=== PATIENT | female | born 1940 | race Caucasian/White ===

== ENCOUNTER → 2016-07-05 | Outpatient (CLI) | payer MEDICARE, BC ==
--- NOTE | 2016-07-05 17:23 | XR ---
EXAMINATION TYPE: XR Hip Bilateral and AP pelvis DATE OF EXAM: 07/05/2016 5:18 PM COMPARISON: NONE HISTORY: Fell a week ago. Hip pain TECHNIQUE: 5 views 5 views of the pelvis and both hips including frog leg views show an intact pelvic ring. Proximal fem urs are intact. There is acetabular spurring on the right side more than the left. The sacroiliac jasbir nts are normal. There is atherosclerotic vascular calcification. There are spondylotic changes in the lumbar spine. CONCLUSION: No fracture seen. 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
== END | disposition home or self-care (01) ==
LOC: RADXRMAIN 16:51
PROVIDERS: ATTEND Internal Medicine Hematology & Oncology
DX: M16.11 Unilateral primary osteoarthritis, right hip (principal); C64.2 Malignant neoplasm of left kidney, except renal pelvis; D64.81 Anemia due to antineoplastic chemotherapy; E11.9 Type 2 diabetes mellitus without complications; I25.10 Atherosclerotic heart disease of native coronary artery without angina pectoris
CPT/HCPCS: 73521

== ENCOUNTER → 2016-08-03 | Outpatient (CLI) | payer MEDICARE, BC ==
--- NOTE | 2016-08-03 16:00 | XR ---
EXAMINATION TYPE: XR chest 2V DATE OF EXAM: 08/03/2016 3:56 PM COMPARISON: None HISTORY: 76-year-old female left renal cell carcinoma TECHNIQUE: Frontal and lateral views FINDINGS: Heart is normal size. Atherosclerotic arch calcifications. Mild interstitial prominence without conso lidation or pleural effusion. Suture anchor within the right humeral head with loss of the subacromial space suggestive of rotator cuff re-tear and rotator cuff arthropathy. IMPRESSION: Chronic changes without acute cardiopulmonary process.
== END | disposition home or self-care (01) ==
LOC: RADXRMAIN 15:29
PROVIDERS: ATTEND Internal Medicine Hematology & Oncology
DX: C64.2 Malignant neoplasm of left kidney, except renal pelvis (principal); D64.81 Anemia due to antineoplastic chemotherapy; E11.9 Type 2 diabetes mellitus without complications; I25.10 Atherosclerotic heart disease of native coronary artery without angina pectoris
CPT/HCPCS: 71020

== ENCOUNTER → 2016-08-09 | Outpatient (CLI) | payer MEDICARE, BC ==
[2016-08-09 13:39] LABS: Blood Urea Nitrogen 15 mg/dL (7-17); Non-African American GFR(MDRD) >60 (>60 ml/min/1.73 sqM)
--- NOTE | 2016-08-09 15:40 | CT ---
EXAMINATION TYPE: CT ChestAbdPelvis w con DATE OF EXAM: 08/09/2016 3:08 PM COMPARISON: CT CAP March 09, 2016 HISTORY: Patient has no complaints at time of service. Follow up study for known renal CA. CT DLP: 2020 mGycm. Automated Exposure Control for Dose Reduction was Utilized. CONTRAST: CT scan of the thorax, abdomen and pelvis is performed with oral and with IV Contrast, patient inject ed with 100 mL of Omnipaque 300. FINDINGS: LUNGS: Linear scarring in the right mid lung bases redemonstrated. A 1.2 x 0.8 cm pleural nodularity right posterior lung apex is unchanged on axial image 8. There is dependent atelectasis in both lower lobe seen. There is no suspicious new parenchymal nodule or mass identified bilaterally. There is n o pleural effusion or pneumothorax seen bilaterally. The tracheobronchial tree is patent. MEDIASTINUM: There is now enlarged paracarinal lymph node measuring 2.7 x 1.8 cm on axial image 21 wi th superior paratracheal extension. There is prominent coronary artery calcification and/or coronary stents. Heart size is upper limits of normal. There is moderate left atrial and left ventricular dil atation present. A 2.1 x 1.9 cm low dense nodule lower pole level right thyroid gland is redemonstrat ed felt stable on background of heterogeneous thyroid, unchanged from older studies. OTHER: No additional significant abnormality is seen. LIVER/GB: 1 cm simple appearing cyst right hepatic lobe axial image 57 is stable presumed benign. Gal lbladder is not visualized and presumed surgically absent. PANCREAS: No significant abnormality is seen. SPLEEN: No significant abnormality is seen. ADRENALS: No significant abnormality is seen. KIDNEYS: Heterogeneous ball-shaped left mid to lower pole renal mass or neoplasm continues to increas e in size measuring 6.8 x 6.4 x 5.9 cm in craniocaudal dimension on axial image 16 and coronal image 49. BOWEL: No significant abnormality is seen. GENITAL ORGANS: Uterus is surgically absent. Remnant ovaries are not enlarged. LYMPH NODES: There is new retroperitoneal/left paraaortic adenopathy just below level of left renal v essels measuring 2.4 x 2.2 cm on axial image 67. There is likely second smaller lymph node inferior a nd lateral to this somewhat indistinct from larger lymph node. OSSEOUS STRUCTURES: There is sclerosis with new mild to moderate height loss at L1 vertebral body lev el. Moderate multilevel spurring throughout the spine is present. Spurring at pubic symphysis is seen . Postsurgical changes in the lower lumbar spine are redemonstrated.. OTHER: There is moderate sized fat-containing umbilical hernia redemonstrated that is stable. There i s moderate to severe diffuse atherosclerotic change of aorta and pelvic branch vessels. IMPRESSION: 1. Continued enlargement in the left renal mass or neoplasm. New retroperitoneal adenopathy at level of kidneys is noted. New paracarinal adenopathy is now present. Overall findings consistent with neop lastic progression. 2. Suspect subacute mild to moderate compression type fracture at L1 level new from prior CT. No yuriy tional areas of sclerosis are identified to suggest pathologic fracture or metastatic disease to the bone but is not entirely excluded.
== END | disposition home or self-care (01) ==
LOC: RADCTMAIN 12:51
PROVIDERS: ATTEND Internal Medicine Hematology & Oncology
DX: C64.9 Malignant neoplasm of unspecified kidney, except renal pelvis (principal); N28.81 Hypertrophy of kidney; R59.0 Localized enlarged lymph nodes
CPT/HCPCS: 82565; 84520; 71260; 74177; 36415; Q9967

== ENCOUNTER 2016-08-15 12:33 | Inpatient (IN) | payer MEDICARE, BC ==
--- NOTE | 2016-08-15 13:06 | ED ---
General Adult HPI - General Chief complaint: Fall Stated complaint: Fall Time Seen by Provider: 08/15/16 12:40 Source: patient, EMS, RN notes reviewed Mode of arrival: EMS Limitations: no limitations - History of Present Illness Initial comments: This is a 76-year-old female who states she lost balance fell backwards and hit her head on the cement. Patient states she was bleeding from the back of head but she did not loose consciousness. Patient denies any neck pain. Patient denies numbness weakness. Patient denies disturbance. Patient denies any lightheadedness dizziness or syncopal episode. Patient denies any chest pain difficulty breathing shortness of breath per patient denies any palpitations. Patient denies abdominal pain. Patient denies any back pain. Patient states she does have some left hip pain however. Patient denies any other extremity pain at this time. - Related Data Home Medications Medication Instructions Recorded Confirmed Aspirin EC [Ecotrin Low Dose] 81 mg PO DAILY 08/15/16 08/15/16 Atenolol [Tenormin] 100 mg PO DAILY 08/15/16 08/15/16 Atorvastatin Calcium [Lipitor] 40 mg PO HS 08/15/16 08/15/16 Furosemide [Lasix] 40 mg PO DAILY 08/15/16 08/15/16 Isosorbide Mononitrate ER [Imdur] 30 mg PO DAILY 08/15/16 08/15/16 Loratadine [Claritin] 10 mg PO DAILY PRN 08/15/16 08/15/16 Meclizine [Antivert] 25 mg PO TID PRN 08/15/16 08/15/16 Mirabegron [Myrbetriq] 25 mg PO DAILY 08/15/16 08/15/16 Nitroglycerin Sl Tabs [Nitrostat] 0.4 mg SUBLINGUAL Q5M PRN 08/15/16 08/15/16 Potassium Chloride [Klor-Con 20] 20 meq PO DAILY 08/15/16 08/15/16 Ranitidine HCl [Zantac] 150 mg PO BID 08/15/16 08/15/16 Sertraline [Zoloft] 50 mg PO DAILY 08/15/16 08/15/16 metFORMIN HCL [Glucophage] 500 mg PO BID 08/15/16 08/15/16 Allergies Allergy/AdvReac Type Severity Reaction Status Date / Time ciprofloxacin [From Cipro] Allergy Unknown Verified 08/15/16 13:45 codeine Allergy Unknown Verified 08/15/16 13:45 enalapril Allergy Unknown Verified 08/15/16 13:45 Review of Systems ROS Statement: Those systems with pertinent positive or pertinent negative responses have been documented in the HPI. ROS Other: All systems not noted in ROS Statement are negative. Past Medical History Past Medical History: Atrial Fibrillation, Diabetes Mellitus, Hyperlipidemia, Hypertension, Renal Disease History of Any Multi-Drug Resistant Organisms: None Reported Past Surgical History: Heart Catheterization With Stent Additional Past Surgical History / Comment(s): stent x2 Past Psychological History: No Psychological Hx Reported Smoking Status: Never smoker Past Alcohol Use History: None Reported Past Drug Use History: None Reported General Exam - General Exam Comments Initial Comments: GENERAL: Patient is well-developed and well-nourished. Patient is nontoxic and well- hydrated and is in mild distress. ENT: Neck is soft and supple. No significant lymphadenopathy is noted. Oropharynx is clear. Moist mucous membranes. Neck has full range of motion without eliciting any pain. EYES: The sclera were anicteric and conjunctiva were pink and moist. Extraocular movements were intact and pupils were equal round and reactive to light. Eyelids were unremarkable. PULMONARY: Unlabored respirations. Good breath sounds bilaterally. No audible rales rhonchi or wheezing was noted. CARDIOVASCULAR: There is a regular rate and rhythm without any murmurs gallops or rubs. Femoral pulses are equal bilaterally ABDOMEN: Soft and nontender with normal bowel sounds. No palpable organomegaly was noted. There is no palpable pulsatile mass. SKIN: Skin is clear with no lesions or rashes and otherwise unremarkable. Patient has a laceration to the left temporal region of the scalp measuring about 3-1/2 cm NEUROLOGIC: Patient is alert and oriented x3. Cranial nerves II through XII are grossly intact. Motor and sensory are also intact. Normal speech, volume and content. Symmetrical smile. Musculoskeletal Patient has tenderness over the lateral aspect of the left hip and is difficult for her to lift her leg or externally rotated. LYMPHATICS: No significant lymphadenopathy is noted PSYCHIATRIC: Normal psychiatric evaluation. Limitations: no limitations Course Vital Signs 08/15/16 08/15/16 08/15/16 12:40 13:27 13:57 Temperature 96.9 F L Pulse Rate 16 L 60 57 L Respiratory 61 H 16 18 Rate Blood Pressure 114/68 130/60 132/62 O2 Sat by Pulse 94 L 99 99 Oximetry Procedures - Laceration Laceration #1 Consent Obtained: verbal consent Time Out Performed: Yes Indication: laceration Site: scalp Description: linear Depth: simple, single layer Pre-repair: wound explored Type of Sutures: other (4 brittni) Size of Sutures: other (Brittni) Complications: pain Patient Tolerated Procedure: well Medical Decision Making - Medical Decision Making EKG shows sinus bradycardia 59 bpm ND interval is on a 76 dresses 146 QT interval 506 QTC is 500. Patient's EKG shows left bundle branch block when compared to an old EKG she had a left bundle branch block previously. No other acute changes are noted Patient's CT of the brain and C-spine were negative. Patient's chest x-ray was negative. Patient has a femoral neck fracture on the left on the hip x-rays. I spoke with orthopedics except the patient admitted the patient. - Lab Data Result diagrams: 08/15/16 13:10 08/15/16 13:10 Lab Results 08/15/16 08/15/16 08/15/16 Range/Units 13:10 13:10 13:10 WBC 12.7 H (3.8-10.6) k/uL RBC 4.01 (3.80-5.40) m/uL Hgb 9.4 L (11.4-16.0) gm/dL Hct 31.6 L (34.0-46.0) % MCV 78.6 L (80.0-100.0) fL MCH 23.4 L (25.0-35.0) pg MCHC 29.8 L (31.0-37.0) g/dL RDW 16.9 H (11.5-15.5) % Plt Count 507 H (150-450) k/uL Neutrophils % 80 % Lymphocytes % 9 % Monocytes % 7 % Eosinophils % 2 % Basophils % 0 % Neutrophils # 10.3 H (1.3-7.7) k/uL Lymphocytes # 1.1 (1.0-4.8) k/uL Monocytes # 0.8 (0-1.0) k/uL Eosinophils # 0.2 (0-0.7) k/uL Basophils # 0.0 (0-0.2) k/uL Hypochromasia Marked Anisocytosis Slight Microcytosis Slight PT (9.0-12.0) sec INR (<1.1) APTT (22.0-30.0) sec Sodium 137 (137-145) mmol/L Potassium 4.4 (3.5-5.1) mmol/L Chloride 97 L (98-107) mmol/L Carbon Dioxide 23 (22-30) mmol/L Anion Gap 17 mmol/L BUN 13 (7-17) mg/dL Creatinine 0.58 (0.52-1.04) mg/dL Est GFR (MDRD) Af Amer >60 (>60 ml/min/1.73 sqM) Est GFR (MDRD) Non-Af >60 (>60 ml/min/1.73 sqM) Glucose 159 H (74-99) mg/dL Calcium 9.9 (8.4-10.2) mg/dL Magnesium 1.4 L (1.6-2.3) mg/dL Total Bilirubin 0.8 (0.2-1.3) mg/dL AST 41 H (14-36) U/L ALT 55 H (9-52) U/L Alkaline Phosphatase 145 H (38-126) U/L Total Creatine Kinase 28 L (30-135) U/L CK-MB (CK-2) <0.2 (0.0-2.4) ng/mL CK-MB (CK-2) Rel Index Troponin I <0.012 (0.000-0.034) ng/mL Total Protein 7.5 (6.3-8.2) g/dL Albumin 3.1 L (3.5-5.0) g/dL 08/15/16 Range/Units 13:10 WBC (3.8-10.6) k/uL RBC (3.80-5.40) m/uL Hgb (11.4-16.0) gm/dL Hct (34.0-46.0) % MCV (80.0-100.0) fL MCH (25.0-35.0) pg MCHC (31.0-37.0) g/dL RDW (11.5-15.5) % Plt Count (150-450) k/uL Neutrophils % % Lymphocytes % % Monocytes % % Eosinophils % % Basophils % % Neutrophils # (1.3-7.7) k/uL Lymphocytes # (1.0-4.8) k/uL Monocytes # (0-1.0) k/uL Eosinophils # (0-0.7) k/uL Basophils # (0-0.2) k/uL Hypochromasia Anisocytosis Microcytosis PT 13.5 H (9.0-12.0) sec INR 1.4 (<1.1) APTT 20.1 L (22.0-30.0) sec Sodium (137-145) mmol/L Potassium (3.5-5.1) mmol/L Chloride (98-107) mmol/L Carbon Dioxide (22-30) mmol/L Anion Gap mmol/L BUN (7-17) mg/dL Creatinine (0.52-1.04) mg/dL Est GFR (MDRD) Af Amer (>60 ml/min/1.73 sqM) Est GFR (MDRD) Non-Af (>60 ml/min/1.73 sqM) Glucose (74-99) mg/dL Calcium (8.4-10.2) mg/dL Magnesium (1.6-2.3) mg/dL Total Bilirubin (0.2-1.3) mg/dL AST (14-36) U/L ALT (9-52) U/L Alkaline Phosphatase (38-126) U/L Total Creatine Kinase (30-135) U/L CK-MB (CK-2) (0.0-2.4) ng/mL CK-MB (CK-2) Rel Index Troponin I (0.000-0.034) ng/mL Total Protein (6.3-8.2) g/dL Albumin (3.5-5.0) g/dL Disposition Clinical Impression: Femoral neck fracture, Fall, Scalp laceration Disposition: ADMITTED IP TO THIS HOSP Referrals: Iggy Caraballo MD [Primary Care Provider] - 1-2 days Time of Disposition: 15:05
[2016-08-15 13:20] LABS: Anisocytosis Slight; Basophils % (A) 0 %; CH 23.2; CHCM 29.6; Eosinophils # (A) 0.2 k/uL (0-0.7); Eosinophils % (A) 2 %; HCT 31.6 % (34.0-46.0); HDW 3.33; HGB 9.4 gm/dL (11.4-16.0); Hypochromasia Marked; Luc # (Auto) 0.27; Luc % (Auto) 2; Lymphocytes # (A) 1.1 k/uL (1.0-4.8); Lymphocytes % (A) 9 %; MCH 23.4 pg (25.0-35.0); MCHC 29.8 g/dL (31.0-37.0); MCV 78.6 fL (80.0-100.0); Mean Platelet Volume 6.4; Microcytosis Slight; Monocytes # (A) 0.8 k/uL (0-1.0); Monocytes % (A) 7 %; Neutrophils # (A) 10.3 k/uL (1.3-7.7); Neutrophils % (A) 80 %; RBC 4.01 m/uL (3.80-5.40); RDW 16.9 % (11.5-15.5); WBC 12.7 k/uL (3.8-10.6); WBC (Perox) 12.72
--- NOTE | 2016-08-15 13:40 | CT ---
EXAMINATION TYPE: CT brain cspine wo con DATE OF EXAM: 08/15/2016 1:32 PM COMPARISON: 08/09/2016 HISTORY: Pain post fall CT DLP: 410.90 mGycm Automated exposure control for dose reduction was used. TECHNIQUE: CT scan of the head and cervical spine are performed without contrast. FINDINGS: Vascular calcifications. Calvarium intact. Mild generalized degenerative change. Perivent ricular low attenuation compatible with remote microvascular ischemia. Small amount of soft tissue ed tacho subcutaneously adjacent to the left parietal calvarium. Cervical spine is visualized in its entirety from C1 through upper thoracic levels and demonstrates s atisfactory alignment without evidence of acute fracture or dislocation. Prevertebral soft tissue ap pears within normal limits. There is multilevel degenerative disc disease and large anterior osteophy te formation. Facet arthropathy at all levels. Most marked changes at C5-6 and C6-C7 with suspected f oraminal encroachment and possible canal stenosis which could be correlated with MRI. IMPRESSION: 1. There is no acute fracture or dislocation evident in the cervical spine. 2. No acute intracranial hemorrhage, mass effect, or midline shift is seen. 3. Along the medial margin of the right upper lobe there is apical pleural thickening. Apical lung ma ss not excluded. This is reported and stable compared to recent CT 08/09/2016 4. Marked enlargement of the right lobe of thyroid with nodularity measuring greater than a centimete r.
[2016-08-15 13:42] LABS: Anion Gap 17 mmol/L; Calcium 9.9 mg/dL (8.4-10.2); Carbon Dioxide 23 mmol/L (22-30); Chloride 97 mmol/L (98-107); Glucose 159 mg/dL (74-99); Non-African American GFR(MDRD) >60 (>60 ml/min/1.73 sqM); Sodium 137 mmol/L (137-145); Total Bilirubin 0.8 mg/dL (0.2-1.3); Total Protein 7.5 g/dL (6.3-8.2)
[2016-08-15 13:46] LABS: INR 1.4 (<1.1); Partial Thromboplastin Time 20.1 sec (22.0-30.0); Prothrombin Time 13.5 sec (9.0-12.0)
[2016-08-15 13:56] LABS: Potassium 4.4 mmol/L (3.5-5.1)
[2016-08-15 13:57] LABS: ALT 55 U/L (9-52); AST 41 U/L (14-36); Alkaline Phosphatase 145 U/L (38-126); Blood Urea Nitrogen 13 mg/dL (7-17); Magnesium 1.4 mg/dL (1.6-2.3)
[2016-08-15 14:03] LABS: Creatine Kinase 28 U/L (30-135)
[2016-08-15 14:16] LABS: Creatine Kinase MB <0.2 ng/mL (0.0-2.4); Troponin I <0.012 ng/mL (0.000-0.034)
[2016-08-15] MEDS ORDERED: DIPH,PERTUS(ACELL)TETVAC-LF 0.5 ML VIAL IM ONE (14:32)
--- NOTE | 2016-08-15 14:50 | XR ---
EXAMINATION TYPE: XR chest 1V DATE OF EXAM: 08/15/2016 2:44 PM COMPARISON: Chest x-ray August 03, 2016. HISTORY: Chest pain after fall injury. TECHNIQUE: Single frontal supine view of the chest is obtained. FINDINGS: Poor inspiration is seen on current study. Elevated right hemidiaphragm is now present. Th ere is chronic parenchymal change without suspicious new focal air space opacity, pleural effusion, o r pneumothorax seen. The cardiac silhouette size is upper limits of normal on current study with ath erosclerotic thoracic aorta. The osseous structures are demineralized. Multilevel spurring and spin e is seen. Surgical changes right humeral head level is redemonstrated with metallic anchor. Degenera tive change of both shoulders is redemonstrated. IMPRESSION: Poor inspiration with elevated right hemidiaphragm but no suspicious focal infiltrate.
[2016-08-15] MEDS ORDERED: MAGNESIUM SULFATE-D5W PMX 1 GM in DEXTROSE/WATER 1 100ML.BAG IVPB ONE (15:00)
--- NOTE | 2016-08-15 15:00 | XR ---
EXAMINATION TYPE: XR Hip LT and AP Pelvis DATE OF EXAM: 08/15/2016 2:44 PM COMPARISON: NONE HISTORY: Pelvic and left hip pain after fall injury TECHNIQUE: A single AP view of the pelvis is obtained. Two views of the left hip are obtained. FINDINGS: Osseous structures are demineralized which is noted to lower radiographic sensitivity. Ther e is acute impacted transcervical fracture of left proximal femur at the femoral neck level. No hip j oint dislocation is seen. Vascular calcification left groin region is noted. Imaging of pelvis shows no additional acute fracture or dislocation. There is mild to moderate joint space loss and spurring and opposite right hip joint. Sacroiliac joints are maintained. Some scattere d vascular calcification is present in the central pelvis. IMPRESSION: There is acute comminuted transcervical impacted fracture of midportion of left femoral neck. (Initial encounter closed type post traumatic fracture)
[2016-08-15] MEDS ORDERED: SODIUM CHLORIDE 0.9% 1,000 ML IV ONE (15:05)
[2016-08-15] MEDS ORDERED: ONDANSETRON 4 MG/2 ML VIAL IVP STA (15:07)
[2016-08-15] MEDS ORDERED: ONDANSETRON 4 MG/2 ML VIAL IVP PRN (15:07)
[2016-08-15] MEDS ORDERED: HYDROmorphone 1 MG/ML 1 ML SYRINGE IVP STA (15:07)
[2016-08-15] MEDS: HYDROmorphone 1 MG/ML 1 ML SYRINGE IVP PRN ×2 (19:10→22:56)
[2016-08-15] MEDS ORDERED: LORATADINE 10 MG TAB PO PRN (20:55)
[2016-08-15] MEDS ORDERED: NITROGLYCERIN SL TABS 0.4 MG TAB SUBLINGUAL PRN (20:55)
[2016-08-15] MEDS ORDERED: MECLIZINE 25 MG TAB PO PRN (20:55)
[2016-08-15 21:58] LABS: Glucose,Whole Blood 173 mg/dL (75-99)
[2016-08-15 22:15] LABS: Hemoglobin A1C 6.8 % (4.2-6.1)
[2016-08-15] MEDS: ATORVASTATIN 40 MG TAB PO SCH (22:48)
[2016-08-15] MEDS: metFORMIN 500 MG TAB PO SCH (22:49)
[2016-08-15] MEDS: FAMOTIDINE 20 MG TAB PO SCH (22:49)
[2016-08-15] MEDS: INSULIN LISPRO (humaLOG) 300 UNIT/3 ML VIAL SQ SCH (22:51)
--- NOTE | 2016-08-15 22:53 | P.CONS ---
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 Iggy Caraballo's patient with past medical history of CAD, A. 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 Quick for the last few weeks. Patient recently had CAT scan and other testing to determine the need for more chemotherapy. Patient was in the [employer] when she went out in the parking lot she felt quite bed lightheaded and her left leg gave out ended up falling in the parking lot slammer had the Increased floor developed to have laceration on the left side and bled quite bed. 911 was called patient brought to the emergency department at [facility] suture of the scalp area was done patient had severe pain in the left hip area x-ray revealed hip fracture in the left side. Patient was admitted to Dr. Elizabeth of service asking for medical clearance for possible surgery tomorrow. I had quite but discussion with the daughter today and more information patient apparently had stage IV renal cell CVA not clear how much metastasis she had this point. Also patient has not seen her seo coordinator and has not had any workup in the lost few years. Her surgery cannot be done tomorrow she need to be seen by cardiology and oncology for the insert and finding of her metastasis take cancer and the possibly of involving the bone. Also patient will have an echocardiogram and seeing cardiology for clearance before deciding to go for surgery. Review of Systems Constitutional: Reports anorexia, Reports fatigue, Reports lethargy, Reports weakness, Denies as per HPI, Denies chills, Denies chronic headaches, Denies chronic pain, Denies daytime sleepiness, Denies fever, Denies malaise, Denies night sweats, Denies poor appetite, Denies sweats, Denies weight gain, Denies weight loss Eyes: bilateral as per HPI Ears: bilateral: decreased hearing Ears, nose, mouth and throat: Reports ant. neck pain, Reports nasal congestion, Reports nose pain, Reports sinus pain, Reports sinus pressure, Denies as per HPI , Denies bleeding gums, Denies dental pain, Denies dysphagia, Denies epistaxis, Denies headache, Denies hoarseness, Denies mouth pain, Denies nasal discharge, Denies neck fullness/pressure, Denies neck lump, Denies odynophagia, Denies post -nasal drip, Denies swelling in mouth, Denies swelling in throat, Denies sore throat, Denies vertigo, Denies voice changes Cardiovascular: Reports claudication, Reports dyspnea on exertion, Reports edema , Reports orthopnea, Reports palpitations, Denies as per HPI, Denies chest pain , Denies decreased exercise tolerance, Denies high blood pressure, Denies irregular heart beat, Denies leg edema, Denies lightheadedness, Denies paroxysmal nocturnal dyspnea, Denies phlebitis, Denies rapid heart beat, Denies shortness of breath, Denies syncope Respiratory: Reports congestion, Reports cough, Reports dyspnea, Denies as per HPI, Denies cough with sputum, Denies excessive sputum, Denies hemoptysis, Denies home oxygen, Denies pain, Denies pain on inspiration, Denies pleurisy, Denies respiratory infections, Denies sleep apnea, Denies snoring, Denies wheezing Gastrointestinal: Reports abdominal pain, Reports dyspepsia, Reports indigestion , Reports nausea, Denies as per HPI, Denies belching, Denies bloating, Denies BRBPR, Denies change in bowel habits, Denies coffee ground emesis, Denies constipation, Denies diarrhea, Denies early satiety, Denies excessive gas, Denies heartburn, Denies hematemesis, Denies hematochezia, Denies jaundice, Denies lactose intolerance, Denies loss of appetite, Denies melena, Denies vomiting Genitourinary: Reports urge incontinence, Reports urgency, Reports urinary frequency, Denies as per HPI, Denies abnormal vaginal bleeding, Denies decreased libido, Denies difficulty conceiving, Denies difficulty voiding, Denies dysmenorrhea, Denies dyspareunia, Denies dysuria, Denies flank pain, Denies genital sores, Denies hematuria, Denies hot flashes, Denies incomplete emptying, Denies kidney stones, Denies menorrhagia, Denies mixed incontinence, Denies nocturia, Denies pelvic pain, Denies post void dribbling, Denies , Denies prolapse symptoms, Denies stress incontinence, Denies vaginal discharge , Denies vaginal dryness, Denies vaginal itching, Denies vaginal odor Musculoskeletal: Reports low back pain, Reports myalgias, Reports neck pain, Reports neck stiffness, Reports prior amputations, Denies as per HPI, Denies arm numbness/tingling, Denies atrophy, Denies fractures, Denies frequent falls, Denies gait dysfunction, Denies hot joints, Denies leg numbness/tingling, Denies limitation of motion, Denies loss of height, Denies morning stiffness, Denies muscle cramps, Denies muscle weakness, Denies redness of joints, Denies shooting arm pain, Denies shooting leg pain Integumentary: Reports pruritus, Reports rash, Denies as per HPI, Denies acne, Denies boils, Denies brittle nails, Denies change in hair/nails, Denies color changes, Denies darkening of skin, Denies depigmentation, Denies dryness, Denies foot/leg ulcers, Denies growths, Denies hirsutism, Denies lesions, Denies onychomycosis, Denies sores, Denies striae, Denies unusual bruising, Denies wounds Neurological: Reports gait dysfunction, Reports paresthesias, Reports weakness, Denies as per HPI, Denies aphasia, Denies ataxia, Denies balance difficulties, Denies burning pain, Denies change in mentation, Denies change in smell/taste, Denies change in speech, Denies confusion, Denies convulsions, Denies double vision, Denies head injury, Denies headaches, Denies hearing difficulties, Denies lack of coordination, Denies loss of vision, Denies memory loss, Denies migraines, Denies motor disturbance, Denies numbness, Denies paralysis, Denies seizures, Denies sensory deficit, Denies spasticity, Denies syncope, Denies tic , Denies tingling, Denies transient paralysis, Denies tremors, Denies vertigo, Denies visual changes Psychiatric: Reports anhedonia, Reports depression, Denies as per HPI, Denies anxiety, Denies anxiety attacks, Denies change in appetite, Denies change in libido, Denies change in sleep habits, Denies confusion, Denies difficulty concentrating, Denies disorientation, Denies hallucinations, Denies hopelessness , Denies hypersomnia, Denies insomnia, Denies irritability, Denies memory loss, Denies mood swings, Denies paranoia, Denies sadness/tearfulness, Denies sleep disturbances, Denies suicidal ideation Endocrine: Reports polyuria, Denies as per HPI, Denies cold intolerance, Denies deepening of the voice, Denies excessive sweating, Denies excessive thirst, Denies fatigue, Denies flushing, Denies heat intolerance, Denies high blood sugars, Denies increase in ring/shoe/hat size, Denies low blood sugars, Denies nocturia, Denies palpitations, Denies polydipsia, Denies polyphagia, Denies proptosis, Denies recent glucocorticoid use, Denies thyroid mass, Denies weight change Hematologic/Lymphatic: Denies as per HPI, Denies easy bleeding, Denies easy bruising, Denies lymphadenopathy, Denies lymphedema, Denies thrombophilia Allergic/Immunologic: Denies as per HPI, Denies allergic rhinitis, Denies anaphylaxis, Denies angioedema, Denies gluten intolerance, Denies persistent infections, Denies seasonal allergies, Denies urticaria, Denies wheezing Past Medical History Past Medical History: Atrial Fibrillation, Cancer, Chest Pain / Angina, Diabetes Mellitus, GERD/Reflux, Hyperlipidemia, Hypertension, Osteoarthritis (OA ), Renal Disease, Thyroid Disorder Additional Past Medical History / Comment(s): 08/15/16 fall/fx lt hip/scalp laceration .past med hx: sinus problems, petptic ulcer, chronic back pain, constipation -last bm sat 08-12-16, stated has" kidney cancer(lt) stage 4 and cancer found in thyroid and lungs take opdivo cassy other week was due to take it next on 08-16-16", decrease appetite,"40# wt loss over past year" History of Any Multi-Drug Resistant Organisms: None Reported Past Surgical History: Appendectomy, Back Surgery, Bladder Surgery, Cholecystectomy, Heart Catheterization With Stent, Hysterectomy Additional Past Surgical History / Comment(s): stent x2 , rt rotator cuff, egd/ colonoscopy, rt breast bx-neg, lt kidney bx positive for cancer,had 2 heart caths([id number]), x3 back sx, obdulia carpal tuneel release, obdulia cataracts. Past Anesthesia/Blood Transfusion Reactions: Previous Problems w/ Anesthesia, Postoperative Nausea & Vomiting (PONV) Additional Past Anesthesia/Blood Transfusion Reaction / Comm: hard to wake up Date of Last Stent Placement:: 2004 Past Psychological History: No Psychological Hx Reported Additional Psychological History / Comment(s): takes zoloft. at time of this admit pt raffi any depression or thoughts of harming self. Smoking Status: Never smoker Past Alcohol Use History: None Reported Past Drug Use History: None Reported - Past Family History Father Family Medical History: Coronary Artery Disease (CAD), Myocardial Infarction ([place] ) Mother Family Medical History: CVA/TIA Additional Family Medical History / Comment(s): "heart problems" Medications and Allergies Home Medications Medication Instructions Recorded Confirmed Type Aspirin EC [Ecotrin Low Dose] 81 mg PO DAILY 08/15/16 08/15/16 History Atenolol [Tenormin] 100 mg PO DAILY 08/15/16 08/15/16 History Atorvastatin Calcium [Lipitor] 40 mg PO HS 08/15/16 08/15/16 History Furosemide [Lasix] 40 mg PO DAILY 08/15/16 08/15/16 History Isosorbide Mononitrate ER [Imdur] 30 mg PO DAILY 08/15/16 08/15/16 History Loratadine [Claritin] 10 mg PO DAILY PRN 08/15/16 08/15/16 History Meclizine [Antivert] 25 mg PO TID PRN 08/15/16 08/15/16 History Mirabegron [Myrbetriq] 25 mg PO DAILY 08/15/16 08/15/16 History Nitroglycerin Sl Tabs [Nitrostat] 0.4 mg SUBLINGUAL Q5M PRN 08/15/16 08/15/16 History Potassium Chloride [Klor-Con 20] 20 meq PO DAILY 08/15/16 08/15/16 History Ranitidine HCl [Zantac] 150 mg PO BID 08/15/16 08/15/16 History Sertraline [Zoloft] 50 mg PO DAILY 08/15/16 08/15/16 History metFORMIN HCL [Glucophage] 500 mg PO BID 08/15/16 08/15/16 History Allergies Allergy/AdvReac Type Severity Reaction Status Date / Time ciprofloxacin [From Cipro] Allergy Unknown Verified 08/15/16 13:45 codeine Allergy Unknown Verified 08/15/16 13:45 enalapril Allergy Unknown Verified 08/15/16 13:45 Physical Exam Vitals: Vital Signs Temp Pulse Resp BP Pulse Ox 08/15/16 19:10 97.6 F 63 16 149/68 96 08/15/16 15:22 97.0 F L 56 L 18 138/63 98 - Constitutional General appearance: no average body habitus, cooperative, no disheveled, no mild distress, no morbidly obese, no acute distress, no obese, no severe distress, no thin - EENT Laceration on the scalp on the left side with suture the area looked clean with no hematoma with mild bruise on the. Eyes: no abnormal pupil, no anicteric sclerae, no disc margins sharp, no edentulous, no EOMI, no PERRLA, no fundus normal, no photophobia, no dentition normal, no poor dentition, no ptosis, no scleral icterus, normal appearance ENT: hard of hearing, no hearing grossly normal, no NA/AT, normal oropharynx, no other, no pharyngeal erythema, no thrush, no tonsillar exudates, no tonsillar swelling Ears: bilateral: normal - Neck Neck: no lymphadenopathy, normal ROM, no other, no rigidity, no stridor, no thyromegaly Thyroid: bilateral: normal size - Respiratory Respiratory: bilateral: CTA, diminished - Cardiovascular Rhythm: regular Heart sounds: normal: S1, S2 Abnormal Heart Sounds: systolic murmur, S3 Gallop - Gastrointestinal General gastrointestinal: no absent bowel sounds, no decreased bowel sounds, distended, no hepatomegaly, no hyperactive bowel sounds, no normal bowel sounds , no organomegaly, no rigid, no scaphoid, soft, no splenomegaly, no tenderness, no umbilical hernia, no ventral hernia - Integumentary Left hip and pelvic pain with slight rotation of the left leg laterally. Integumentary: jaundiced, normal, pale, rash - Neurologic Neurologic: CNII-XII intact - Musculoskeletal Musculoskeletal: gait normal, generalized weakness, strength equal bilaterally - Psychiatric Psychiatric: A&O x's 3, appropriate affect Results CBC & Chem 7: 08/15/16 13:10 08/15/16 13:10 Labs: Abnormal Lab Results - Last 24 Hours (Table) 08/15/16 08/15/16 Range/Units 19:51 21:55 POC Glucose (mg/dL) 173 H (75-99) mg/dL Hemoglobin A1c 6.8 H (4.2-6.1) % Assessment and Plan Plan: 1 left hip fracture: Patient eventually will need to go for surgery either for ORIF or hemiarthroplasty. Patient had significant increased risk factor for complications during after surgery with the and certain degree of her metastasis which can be involving the bone might need to have further testing including bone scan if needed because if the hip bone is involved with further metastasis that might change the whole philosophy of fixing this hip at this point. Her oncologist will be involved and review her testing and further recommendation to follow. 2 close head trauma: Patient did not lose any consciousness according to her CAT scan of the brain did not show any bleeding continue to monitor patient neurologically closely. 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 Quick regularly CT and other testing were done patient was post to discuss results with her oncologist this week. 4 CAD post PCI with 2 stent placement: Patient has not seen Dr. Mark on her seo coordinator and over a year will order an echocardiogram and cardiology consultation. 5 A. fib: Pulse rates under control patient is in sinus rhythm currently not on any anticoagulation. 6 hypertension: Patient is doing well on atenolol. 7 chronic edema: Has been on furosemide 40 mg daily. 8 severe GERD: Patient is on Zantac 150 milligrams twice a day. 9 chronic depression: Has been on Zoloft 50 mg daily. 10 diabetes type 2: Patient is on metformin 500 mg twice a day continue patient on Accu-Chek with sliding scales coverage. 11 hyperlipidemia: Has been on Lipitor 40 mg daily. 12 chronic incontinence: Has been in Myrbetriq 25 mg daily. GI prophylaxis: Remain on Zantac. DVT prophylaxis: Patient will be on heparin subcutaneous. CODE STATUS: Full code. Dr. Elizabeth thank you very much for the consult surgery cannot be done on 08/16 , She will be seen cardiology and oncology based on the final decision with testing surgery might be scheduled for this week.
[2016-08-16] MEDS: HYDROmorphone 1 MG/ML 1 ML SYRINGE IVP PRN ×5 (04:26→22:37)
[2016-08-16 06:59] LABS: Glucose,Whole Blood 131 mg/dL (75-99)
[2016-08-16] MEDS: ISOSORBIDE MONONITRATE ER 30 MG TAB.ER.24H PO SCH (08:20)
[2016-08-16] MEDS: POTASSIUM CHLORIDE ER 20 MEQ TAB.ER PO SCH (08:20)
[2016-08-16] MEDS: FAMOTIDINE 20 MG TAB PO SCH ×2 (08:20→20:40)
[2016-08-16] MEDS: SERTRALINE 50 MG TAB PO SCH (08:20)
[2016-08-16] MEDS: OXYBUTYNIN XL 5 MG TAB.ER.24 PO SCH (08:20)
[2016-08-16] MEDS: FUROSEMIDE 40 MG TAB PO SCH (08:20)
[2016-08-16] MEDS: ATENOLOL 50 MG TAB PO SCH (08:20)
[2016-08-16] MEDS: metFORMIN 500 MG TAB PO SCH ×2 (08:20→20:40)
[2016-08-16] MEDS: INSULIN LISPRO (humaLOG) 300 UNIT/3 ML VIAL SQ SCH ×4 (08:20→20:40)
--- NOTE | 2016-08-16 08:36 | P.HPOR ---
History of Present Illness H&P Date: 08/16/16 Chief Complaint: Left hip fracture This is a 76-year-old female with history of stage IV renal cell cancer. Patient sustained a fall onto her left hip yesterday and had immediate pain. She is brought to the emergency department [facility] where x-rays revealed a left hip fracture. Patient was admitted to our service for surgical intervention. Patient was seen and evaluated at bedside. She complains of pain in her left hip. She denies any additional areas of musculoskeletal pain at this time. The patient did hit her head and computed tomography scan was obtained of the patient's head and neck. She currently denies fevers, chills, nausea, vomiting, chest pain or abdominal pain. Review of Systems See HPI Past Medical History Past Medical History: Atrial Fibrillation, Cancer, Chest Pain / Angina, Diabetes Mellitus, GERD/Reflux, Hyperlipidemia, Hypertension, Osteoarthritis (OA ), Renal Disease, Thyroid Disorder Additional Past Medical History / Comment(s): 08/15/16 fall/fx lt hip/scalp laceration .past med hx: sinus problems, petptic ulcer, chronic back pain, constipation -last bm sat 08-12-16, stated has" kidney cancer(lt) stage 4 and cancer found in thyroid and lungs take opdivo cassy other week was due to take it next on 08-16-16", decrease appetite,"40# wt loss over past year" History of Any Multi-Drug Resistant Organisms: None Reported Past Surgical History: Appendectomy, Back Surgery, Bladder Surgery, Cholecystectomy, Heart Catheterization With Stent, Hysterectomy Additional Past Surgical History / Comment(s): stent x2 , rt rotator cuff, egd/ colonoscopy, rt breast bx-neg, lt kidney bx positive for cancer,had 2 heart caths([id number]), x3 back sx, obdulia carpal tuneel release, obdulia cataracts. Past Anesthesia/Blood Transfusion Reactions: Previous Problems w/ Anesthesia, Postoperative Nausea & Vomiting (PONV) Additional Past Anesthesia/Blood Transfusion Reaction / Comment(s): hard to wake up Date of Last Stent Placement:: 2004 Past Psychological History: No Psychological Hx Reported Additional Psychological History / Comment(s): takes zoloft. at time of this admit pt raffi any depression or thoughts of harming self. Smoking Status: Never smoker Past Alcohol Use History: None Reported Past Drug Use History: None Reported - Past Family History Father Family Medical History: Coronary Artery Disease (CAD), Myocardial Infarction ([place] ) Mother Family Medical History: CVA/TIA Additional Family Medical History / Comment(s): "heart problems" Medications and Allergies Home Medications Medication Instructions Recorded Confirmed Type Aspirin EC [Ecotrin Low Dose] 81 mg PO DAILY 08/15/16 08/15/16 History Atenolol [Tenormin] 100 mg PO DAILY 08/15/16 08/15/16 History Atorvastatin Calcium [Lipitor] 40 mg PO HS 08/15/16 08/15/16 History Furosemide [Lasix] 40 mg PO DAILY 08/15/16 08/15/16 History Isosorbide Mononitrate ER [Imdur] 30 mg PO DAILY 08/15/16 08/15/16 History Loratadine [Claritin] 10 mg PO DAILY PRN 08/15/16 08/15/16 History Meclizine [Antivert] 25 mg PO TID PRN 08/15/16 08/15/16 History Mirabegron [Myrbetriq] 25 mg PO DAILY 08/15/16 08/15/16 History Nitroglycerin Sl Tabs [Nitrostat] 0.4 mg SUBLINGUAL Q5M PRN 08/15/16 08/15/16 History Potassium Chloride [Klor-Con 20] 20 meq PO DAILY 08/15/16 08/15/16 History Ranitidine HCl [Zantac] 150 mg PO BID 08/15/16 08/15/16 History Sertraline [Zoloft] 50 mg PO DAILY 08/15/16 08/15/16 History metFORMIN HCL [Glucophage] 500 mg PO BID 08/15/16 08/15/16 History Allergies Allergy/AdvReac Type Severity Reaction Status Date / Time ciprofloxacin [From Cipro] Allergy Unknown Verified 08/15/16 13:45 codeine Allergy Unknown Verified 08/15/16 13:45 enalapril Allergy Unknown Verified 08/15/16 13:45 Physical Examination The patient does not appear in acute distress. She is alert and orientated 3. She is pleasant and answers questions appropriately. Head normocephalic. She does have laceration on the left side of her scalp which was repaired with brittni in the emergency department by the ER physician. Neck is supple. She moves her upper extremities freely without difficulty or pain. Breathing appears nonlabored. Upon evaluation of her lower extremities, left lower extremity is shortened and externally rotated. She has pain about the left hip and worsening pain with any motion of the left lower extremity. She otherwise denies any pain of her long bones and joints of her lower extremity today. Calves are soft and nontender. She does have superficial abrasion of the anterior aspect of the left knee with no erythema or drainage. She is able to perform dorsiflexion plantar flexion at her ankles. Dorsalis pedis pulse 1+. Sensation is intact. Results X-rays the patient's left hip and pelvis shows femoral neck fracture of the left femur. No additional fractures were noted. - Labs Labs: Abnormal Lab Results - Last 24 Hours (Table) 08/15/16 08/15/16 08/16/16 Range/Units 19:51 21:55 06:57 POC Glucose (mg/dL) 173 H 131 H (75-99) mg/dL Hemoglobin A1c 6.8 H (4.2-6.1) % Result Diagrams: 08/15/16 13:10 08/15/16 13:10 Assessment and Plan (1) Fall Status: Acute (2) Femoral neck fracture Status: Acute (3) Scalp laceration Status: Acute Plan: The patient was seen and evaluated at bedside with Dr. Kodi Elizabeth. The clinical and x-ray findings were discussed with the patient. Discussed nonoperative versus operative treatment. Orthopedics recommends surgical intervention with hemiarthroplasty of the left hip. Possible risks and complications including but not limited to risk of bleeding, infection, dislocation, DVT, stroke, heart attack and were discussed. The patient has been seen by Dr. Reed in consultation and his input is appreciated. We will await consultation with oncology as she does have history of renal cell carcinoma. Definitive treatment will be determined after these consultations. Possible surgery tomorrow depending upon her course. Continue with pain control.
[2016-08-16] MEDS: SENNOSIDES-DOCUSATE SODIUM 1 EACH TAB PO SCH (09:10)
[2016-08-16 10:05] VITALS: BMI 29.2
[2016-08-16 11:58] LABS: Glucose,Whole Blood 160 mg/dL (75-99)
--- NOTE | 2016-08-16 12:04 | P.PN ---
Progress Note - Text Full consult to follow D/W ortho No contraindication to surgery from Onc standpoint
--- NOTE | 2016-08-16 12:13 | P.CRDCN ---
History of Present Illness Consult date: 08/16/16 History of present illness: This is a pleasant 76-year-old female patient who sees Dr. 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 The patient fell in the parking lot and fractured her left hip. She was seen by the orthopedic surgery service and the plan is to proceed with surgery tomorrow if she is medically stable. From the cardiovascular standpoint overview, she denies having any chest pain or discomfort, she has chronic dyspnea which seems to be unchanged compared to before. Hemodynamically, she continues to be stable with a normal blood pressure and she continues to be in normal sinus mechanism. From the cardiac standpoint, the patient can proceed with the surgery. I would recommend continue the beta candace with metoprolol and continue the statin as well. We'll continue following up with the patient. I am going to obtain an echocardiogram to assess the LV function in view of the patient was receiving chemotherapy for renal cell carcinoma. Past Medical History Past Medical History: Atrial Fibrillation, Cancer, Chest Pain / Angina, Diabetes Mellitus, GERD/Reflux, Hyperlipidemia, Hypertension, Osteoarthritis (OA ), Renal Disease, Thyroid Disorder Additional Past Medical History / Comment(s): 08/15/16 fall/fx lt hip/scalp laceration .past med hx: sinus problems, petptic ulcer, chronic back pain, constipation -last bm sat 08-12-16, stated has" kidney cancer(lt) stage 4 and cancer found in thyroid and lungs take opdivo cassy other week was due to take it next on 08-16-16", decrease appetite,"40# wt loss over past year" History of Any Multi-Drug Resistant Organisms: None Reported Past Surgical History: Appendectomy, Back Surgery, Bladder Surgery, Cholecystectomy, Heart Catheterization With Stent, Hysterectomy Additional Past Surgical History / Comment(s): stent x2 , rt rotator cuff, egd/ colonoscopy, rt breast bx-neg, lt kidney bx positive for cancer,had 2 heart caths([id number]), x3 back sx, obdulia carpal tuneel release, obdulia cataracts. Past Anesthesia/Blood Transfusion Reactions: Previous Problems w/ Anesthesia, Postoperative Nausea & Vomiting (PONV) Additional Past Anesthesia/Blood Transfusion Reaction / Comment(s): hard to wake up Date of Last Stent Placement:: 2004 Past Psychological History: No Psychological Hx Reported Additional Psychological History / Comment(s): takes zoloft. at time of this admit pt raffi any depression or thoughts of harming self. Smoking Status: Never smoker Past Alcohol Use History: None Reported Past Drug Use History: None Reported - Past Family History Father Family Medical History: Coronary Artery Disease (CAD), Myocardial Infarction ([place] ) Mother Family Medical History: CVA/TIA Additional Family Medical History / Comment(s): "heart problems" Medications and Allergies Home Medications Medication Instructions Recorded Confirmed Type Aspirin EC [Ecotrin Low Dose] 81 mg PO DAILY 08/15/16 08/15/16 History Atenolol [Tenormin] 100 mg PO DAILY 08/15/16 08/15/16 History Atorvastatin Calcium [Lipitor] 40 mg PO HS 08/15/16 08/15/16 History Furosemide [Lasix] 40 mg PO DAILY 08/15/16 08/15/16 History Isosorbide Mononitrate ER [Imdur] 30 mg PO DAILY 08/15/16 08/15/16 History Loratadine [Claritin] 10 mg PO DAILY PRN 08/15/16 08/15/16 History Meclizine [Antivert] 25 mg PO TID PRN 08/15/16 08/15/16 History Mirabegron [Myrbetriq] 25 mg PO DAILY 08/15/16 08/15/16 History Nitroglycerin Sl Tabs [Nitrostat] 0.4 mg SUBLINGUAL Q5M PRN 08/15/16 08/15/16 History Potassium Chloride [Klor-Con 20] 20 meq PO DAILY 08/15/16 08/15/16 History Ranitidine HCl [Zantac] 150 mg PO BID 08/15/16 08/15/16 History Sertraline [Zoloft] 50 mg PO DAILY 08/15/16 08/15/16 History metFORMIN HCL [Glucophage] 500 mg PO BID 08/15/16 08/15/16 History Allergies Allergy/AdvReac Type Severity Reaction Status Date / Time ciprofloxacin [From Cipro] Allergy Unknown Verified 08/15/16 13:45 codeine Allergy Unknown Verified 08/15/16 13:45 enalapril Allergy Unknown Verified 08/15/16 13:45 Physical Exam Vitals: Vital Signs Temp Pulse Pulse Resp BP BP Pulse Ox 08/16/16 07:00 96.8 F L 62 16 124/57 91 L 08/16/16 01:20 98.1 F 62 16 122/70 97 08/15/16 19:10 97.6 F 63 16 149/68 96 08/15/16 15:22 97.0 F L 56 L 18 138/63 98 Intake and Output 08/15/16 08/16/16 08/16/16 22:59 06:59 14:59 Intake Total 800 Output Total 660 300 Balance -660 500 Intake: IV 800 Sodium Chloride 0.9% 1, 800 000 ml @ 100 mls/hr IV . Q10H ONE Rx#:[id number] Output: Urine 660 300 Uretheral ([place]) 660 300 Other: Voiding Method Indwelling Catheter Weight 84.822 kg Patient Weight 08/17/16 06:59 Weight 84.822 kg - Constitutional General appearance: no acute distress - Respiratory Respiratory: bilateral: CTA - Cardiovascular Rhythm: regular Heart sounds: normal: S1, S2 Abnormal Heart Sounds: systolic murmur Results 08/15/16 13:10 08/15/16 13:10 Current Medications Generic Name Dose Route Start Last Admin Trade Name Freq PRN Reason Stop Dose Admin Atenolol 100 mg 08/16/16 09:00 08/16/16 08:20 Tenormin PO 100 mg DAILY JOY Administration Atorvastatin Calcium 40 mg 08/15/16 21:00 08/15/16 22:48 Lipitor PO 40 mg HS JOY Administration Famotidine 20 mg 08/15/16 21:00 08/16/16 08:20 Pepcid PO 20 mg BID JOY Administration Furosemide 40 mg 08/16/16 09:00 08/16/16 08:20 Lasix PO 40 mg DAILY JOY Administration Hydromorphone HCl 0.5 mg 08/15/16 15:07 08/16/16 08:25 Dilaudid IVP 0.5 mg Q4HR PRN Administration Pain Insulin Human Lispro 0 unit 08/15/16 21:00 08/16/16 08:20 Humalog SQ 1 unit ACHS JOY Administration Protocol Isosorbide Mononitrate 30 mg 08/16/16 09:00 08/16/16 08:20 Imdur PO 30 mg DAILY JOY Administration Loratadine 10 mg 08/15/16 20:55 Claritin PO DAILY PRN Allergy Symptoms Meclizine HCl 25 mg 08/15/16 20:55 Antivert PO TID PRN Vertigo Metformin HCl 500 mg 08/15/16 21:00 08/16/16 08:20 Glucophage PO 500 mg BID JOY Administration Nitroglycerin 0.4 mg 08/15/16 20:55 Nitrostat SUBLINGUAL Q5M PRN Chest Pain Ondansetron HCl 4 mg 08/15/16 15:07 Zofran IVP Q6HR PRN Nausea And Vomiting Oxybutynin Chloride 5 mg 08/16/16 09:00 08/16/16 08:20 Ditropan Xl PO 5 mg DAILY JOY Administration Potassium Chloride 20 meq 08/16/16 09:00 08/16/16 08:20 K-Dur 20 PO 20 meq DAILY JOY Administration Senna/Docusate Sodium 1 each 08/16/16 09:00 08/16/16 09:10 Senokot-S PO 1 each DAILY JOY Administration Sertraline HCl 50 mg 08/16/16 09:00 08/16/16 08:20 Zoloft PO 50 mg DAILY JOY Administration Intake and Output 08/15/16 08/16/16 08/16/16 22:59 06:59 14:59 Intake Total 800 Output Total 660 300 Balance -660 500 Intake: IV 800 Sodium Chloride 0.9% 1, 800 000 ml @ 100 mls/hr IV . Q10H ONE Rx#:[id number] Output: Urine 660 300 Uretheral ([place]) 660 300 Other: Voiding Method Indwelling Catheter Weight 84.822 kg Patient Weight 08/17/16 06:59 Weight 84.822 kg Assessment and Plan Plan: Assessment #1 status post fall and left hip fracture #2 advanced renal cell carcinoma on chemotherapy #3 coronary artery disease with prior stenting #4 paroxysmal atrial fibrillation #5 multiple comorbid conditions Plan #1 obtain an echocardiogram to assess LV function #2 from the cardiac standpoint of view, the patient can proceed with the surgery #3 continue the current medical treatment including the metoprolol and statin #4 follow-up with the patient
[2016-08-16] MEDS: SODIUM CHLORIDE 0.9% 1,000 ML IV SCH ×2 (14:20→22:42)
--- NOTE | 2016-08-16 15:42 | P.PN ---
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 Iggy Caraballo's patient with past medical history of CAD, A. 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 Quick for the last few weeks. Patient recently had CAT scan and other testing to determine the need for more chemotherapy. Patient was in the [employer] when she went out in the parking lot she felt quite bed lightheaded and her left leg gave out ended up falling in the parking lot slammer had the Increased floor developed to have laceration on the left side and bled quite bed. 911 was called patient brought to the emergency department at [facility] suture of the scalp area was done patient had severe pain in the left hip area x-ray revealed hip fracture in the left side. Patient was admitted to Dr. Elizabeth of service asking for medical clearance for possible surgery tomorrow. I had quite but discussion with the daughter today and more information patient apparently had stage IV renal cell CVA not clear how much metastasis she had this point. Also patient has not seen her flake drier and has not had any workup in the lost few years. Her surgery cannot be done tomorrow she need to be seen by cardiology and oncology for the insert and finding of her metastasis take cancer and the possibly of involving the bone. Also patient will have an echocardiogram and seeing cardiology for clearance before deciding to go for surgery. Patient ended up seen Dr. Huizar cardiology were requested an echocardiogram and a clear patient for surgery, also patient was seen Dr. Alves oncology review the last CAT scan order by his partner Dr. Quick and showed progression in cancer with metastasis but from his standpoint patient is a clear to go for surgery to fix the hip whether she is going go for hemiarthroplasty or ORIF she is a clear. Objective - Vital Signs Vital signs: Vital Signs Temp 96.8 F L 08/16/16 07:00 Pulse 62 08/16/16 07:00 Resp 16 08/16/16 07:00 BP 124/57 08/16/16 07:00 Pulse Ox 91 L 08/16/16 07:00 Intake & Output 08/15/16 08/16/16 08/16/16 18:59 06:59 18:59 Intake Total 800 240 Output Total 660 300 390 Balance -660 500 -150 Weight 84.822 kg Intake: IV 800 Sodium Chloride 0.9% 1, 800 000 ml @ 100 mls/hr IV . Q10H ONE Rx#:[id number] Oral 240 Output: Urine 660 300 390 Uretheral ([place]) 660 300 390 Other: Voiding Method Indwelling Catheter Indwelling Catheter - Constitutional General appearance: Present: cooperative, no acute distress. Absent: average body habitus, disheveled, mild distress, morbidly obese, obese, severe distress , thin - EENT Eyes: Present: normal appearance. Absent: abnormal pupil, anicteric sclerae, disc margins sharp, edentulous, EOMI, PERRLA, fundus normal, photophobia, dentition normal, poor dentition, ptosis, scleral icterus ENT: Present: hard of hearing. Absent: hearing grossly normal, NA/AT, normal oropharynx, other, pharyngeal erythema, thrush, tonsillar exudates, tonsillar swelling Ears: bilateral: normal - Neck Neck: Present: lymphadenopathy, normal ROM. Absent: other, rigidity, stridor, thyromegaly Carotids: bilateral: upstroke normal - Respiratory Respiratory: bilateral: CTA, diminished - Cardiovascular Rhythm: regular Heart sounds: normal: S1, S2 Abnormal Heart Sounds: Present: systolic murmur, S3 Gallop - Gastrointestinal General gastrointestinal: Present: decreased bowel sounds, scaphoid, soft. Absent: absent bowel sounds, distended, hepatomegaly, hyperactive bowel sounds, normal bowel sounds, organomegaly, rigid, splenomegaly, tenderness, umbilical hernia, ventral hernia - Integumentary Integumentary Comment(s): Significant pain and discomfort and left hip area with deformity slight rotation to the lateral side consistent with fracture of the hip area. Integumentary: Present: cellulitis, normal. Absent: calor, cyanotic, decreased turgor, flushed, jaundiced, normal turgor, pale, rash, ulcer - Neurologic Neurologic: Present: CNII-XII intact - Musculoskeletal Musculoskeletal: Present: gait normal, generalized weakness. Absent: strength equal bilaterally, right sided weakness, left sided weakness - Psychiatric Psychiatric: Present: A&O x's 3, appropriate affect. Absent: intact judgment & insight - Labs CBC & Chem 7: 08/15/16 13:10 08/15/16 13:10 Labs: Abnormal Lab Results - Last 24 Hours (Table) 08/15/16 08/15/16 08/16/16 Range/Units 19:51 21:55 06:57 POC Glucose (mg/dL) 173 H 131 H (75-99) mg/dL Hemoglobin A1c 6.8 H (4.2-6.1) % 08/16/16 Range/Units 11:43 POC Glucose (mg/dL) 160 H (75-99) mg/dL Hemoglobin A1c (4.2-6.1) % Assessment and Plan Plan: 1 left hip fracture: Patient eventually will need to go for surgery either for ORIF or hemiarthroplasty. Patient had significant increased risk factor for complications during after surgery with the and certain degree of her metastasis which can be involving the bone might need to have further testing including bone scan if needed because if the hip bone is involved with further metastasis that might change the whole philosophy of fixing this hip at this point. Her oncologist will be involved and review her testing and further recommendation to follow. With the 2 consultation done today but between oncology and cardiology patient is clear for surgery from my standpoint still have significant high risk for complications during after 2 close head trauma: Patient did not lose any consciousness according to her CAT scan of the brain did not show any bleeding continue to monitor patient neurologically closely. 3 advanced stage IV renal cell carcinoma with metastasis: Has been having chemotherapy with Dr. Quick regularly CT and other testing were done patient was post to discuss results with her oncologist this week. 4 CAD post PCI with 2 stent placement: Patient has not seen Dr. Mark on her flake drier and over a year will order an echocardiogram and cardiology consultation. Cardiac testing with echo will be done patient was cleared for surgery. 5 A. fib: Pulse rates under control patient is in sinus rhythm currently not on any anticoagulation. 6 hypertension: Patient is doing well on atenolol. 7 chronic edema: Has been on furosemide 40 mg daily. 8 severe GERD: Patient is on Zantac 150 milligrams twice a day. 9 chronic depression: Has been on Zoloft 50 mg daily. 10 diabetes type 2: Patient is on metformin 500 mg twice a day continue patient on Accu-Chek with sliding scales coverage. 11 hyperlipidemia: Has been on Lipitor 40 mg daily. 12 chronic incontinence: Has been in Myrbetriq 25 mg daily. GI prophylaxis: Remain on Zantac. DVT prophylaxis: Patient will be on heparin subcutaneous. CODE STATUS: Full code.
[2016-08-16 17:08] LABS: Glucose,Whole Blood 134 mg/dL (75-99)
[2016-08-16 20:03] LABS: Glucose,Whole Blood 138 mg/dL (75-99)
[2016-08-16] MEDS: ATORVASTATIN 40 MG TAB PO SCH (20:40)
--- NOTE | 2016-08-16 21:37 | P.CONS ---
History of Present Illness - Reason for Consult Consult date: 08/16/16 Renal cell cancer, on treatment. Left femur fracture - History of Present Illness The patient is a 76-year-old lady well known to our service. She is followed by Dr. Quick in the outpatient setting. The patient was diagnosed with stage IV renal cell carcinoma, in early 2015. At that time the patient had evidence of a left renal mass, along with the presence of mass in the right upper lung and enlarged mediastinal lymph nodes. She was started on treatment with Votrient, but had issues with tolerance, and subsequently developed progression. She was then switched to OPdivo, which she tolerated quite well. She did have evidence of response on CT scans. However over the last few weeks she had been complaining of increased weakness, as well as some back pain. Her last dose of Opdivo was just about 2 weeks ago. The patient suffered an extensive fall, she was feeling somewhat weak and dizzy. She had trauma to the left side of her for and, as well as the left side of her body. She was brought into the emergency room where computed tomography scan of the head and cervical spine were found to be negative. 6 was also negative. However x-ray of the hip and pelvis did show evidence of fracture in the left femoral neck. She was seen by the orthopedic service, and surgical fixation was recommended. Consult was placed for clearance from the hematology standpoint. The patient had restaging CAT scans on 08/09/16. This showed evidence of progression in the mediastinal nodes, left renal mass as well as new adenopathy in the left retroperitoneal area Review of Systems Constitutional: Reports weakness Eyes: denies blurred vision, denies pain Ears: deny: decreased hearing, ear discharge, earache, tinnitus Ears, nose, mouth and throat: Denies headache, Denies sore throat Cardiovascular: Reports lightheadedness, Denies chest pain, Denies shortness of breath Respiratory: Denies cough Gastrointestinal: Denies abdominal pain, Denies diarrhea, Denies nausea, Denies vomiting Genitourinary: Reports as per HPI (Left renal mass) Menstruation: Reports postmenopausal Musculoskeletal: Reports as per HPI Integumentary: Denies pruritus, Denies rash Neurological: Reports weakness Psychiatric: Denies anxiety, Denies depression Endocrine: Denies fatigue, Denies weight change Hematologic/Lymphatic: Reports as per HPI Past Medical History Past Medical History: Atrial Fibrillation, Cancer, Chest Pain / Angina, Diabetes Mellitus, GERD/Reflux, Hyperlipidemia, Hypertension, Osteoarthritis (OA ), Renal Disease, Thyroid Disorder Additional Past Medical History / Comment(s): 08/15/16 fall/fx lt hip/scalp laceration .past med hx: sinus problems, petptic ulcer, chronic back pain, constipation -last bm sat 08-12-16, stated has" kidney cancer(lt) stage 4 and cancer found in thyroid and lungs take opdivo cassy other week was due to take it next on 08-16-16", decrease appetite,"40# wt loss over past year" History of Any Multi-Drug Resistant Organisms: None Reported Past Surgical History: Appendectomy, Back Surgery, Bladder Surgery, Cholecystectomy, Heart Catheterization With Stent, Hysterectomy Additional Past Surgical History / Comment(s): stent x2 , rt rotator cuff, egd/ colonoscopy, rt breast bx-neg, lt kidney bx positive for cancer,had 2 heart caths([id number]), x3 back sx, obdulia carpal tuneel release, obdulia cataracts. Past Anesthesia/Blood Transfusion Reactions: Previous Problems w/ Anesthesia, Postoperative Nausea & Vomiting (PONV) Additional Past Anesthesia/Blood Transfusion Reaction / Comm: hard to wake up Date of Last Stent Placement:: 2004 Past Psychological History: No Psychological Hx Reported Additional Psychological History / Comment(s): takes zoloft. at time of this admit pt raffi any depression or thoughts of harming self. Smoking Status: Never smoker Past Alcohol Use History: None Reported Past Drug Use History: None Reported - Past Family History Father Family Medical History: Coronary Artery Disease (CAD), Myocardial Infarction ([place] ) Mother Family Medical History: CVA/TIA Additional Family Medical History / Comment(s): "heart problems" Medications and Allergies Home Medications Medication Instructions Recorded Confirmed Type Aspirin EC [Ecotrin Low Dose] 81 mg PO DAILY 08/15/16 08/15/16 History Atenolol [Tenormin] 100 mg PO DAILY 08/15/16 08/15/16 History Atorvastatin Calcium [Lipitor] 40 mg PO HS 08/15/16 08/15/16 History Furosemide [Lasix] 40 mg PO DAILY 08/15/16 08/15/16 History Isosorbide Mononitrate ER [Imdur] 30 mg PO DAILY 08/15/16 08/15/16 History Loratadine [Claritin] 10 mg PO DAILY PRN 08/15/16 08/15/16 History Meclizine [Antivert] 25 mg PO TID PRN 08/15/16 08/15/16 History Mirabegron [Myrbetriq] 25 mg PO DAILY 08/15/16 08/15/16 History Nitroglycerin Sl Tabs [Nitrostat] 0.4 mg SUBLINGUAL Q5M PRN 08/15/16 08/15/16 History Potassium Chloride [Klor-Con 20] 20 meq PO DAILY 08/15/16 08/15/16 History Ranitidine HCl [Zantac] 150 mg PO BID 08/15/16 08/15/16 History Sertraline [Zoloft] 50 mg PO DAILY 08/15/16 08/15/16 History metFORMIN HCL [Glucophage] 500 mg PO BID 08/15/16 08/15/16 History Allergies Allergy/AdvReac Type Severity Reaction Status Date / Time ciprofloxacin [From Cipro] Allergy Unknown Verified 08/15/16 13:45 codeine Allergy Unknown Verified 08/15/16 13:45 enalapril Allergy Unknown Verified 08/15/16 13:45 Physical Exam Vitals: Vital Signs Temp Pulse Resp BP Pulse Ox 08/16/16 19:41 97.6 F 67 16 116/64 97 08/16/16 15:00 98.0 F 62 16 123/50 97 08/16/16 07:00 96.8 F L 62 16 124/57 91 L 08/16/16 01:20 98.1 F 62 16 122/70 97 Intake and Output 08/16/16 08/16/16 08/16/16 06:59 14:59 22:59 Intake Total 800 1090 Output Total 300 390 Balance 500 700 Intake: IV 800 750 Sodium Chloride 0.9% 1, 800 750 000 ml @ 100 mls/hr IV . Q10H ONE Rx#:[id number] Oral 340 Output: Urine 300 390 Uretheral ([place]) 300 390 Other: Voiding Method Indwelling Catheter Indwelling Catheter Indwelling Catheter Weight 84.822 kg Patient Weight 08/17/16 06:59 Weight 84.822 kg - Constitutional General appearance: no acute distress - EENT Eyes: EOMI, PERRLA ENT: hearing grossly normal, normal oropharynx - Neck Neck: lymphadenopathy Thyroid: bilateral: normal size - Respiratory Respiratory: bilateral: CTA - Cardiovascular Rhythm: regular Heart sounds: normal: S1, S2 - Gastrointestinal General gastrointestinal: normal bowel sounds, soft - Integumentary Integumentary: normal - Neurologic Neurologic: CNII-XII intact - Musculoskeletal Musculoskeletal: left sided weakness (Left lower extremity proximal weakness, due to fracture) - Psychiatric Psychiatric: A&O x's 3, appropriate affect Results CBC & Chem 7: 08/15/16 13:10 08/15/16 13:10 Labs: Abnormal Lab Results - Last 24 Hours (Table) 08/15/16 08/15/16 08/16/16 Range/Units 19:51 21:55 06:57 POC Glucose (mg/dL) 173 H 131 H (75-99) mg/dL Hemoglobin A1c 6.8 H (4.2-6.1) % 08/16/16 08/16/16 08/16/16 Range/Units 11:43 17:05 20:00 POC Glucose (mg/dL) 160 H 134 H 138 H (75-99) mg/dL Hemoglobin A1c (4.2-6.1) % Chest x-ray: report reviewed (Report of x-ray hip/pelvis reviewed) CT scan - abdomen: report reviewed CT scan - chest: report reviewed CT Scan - head: report reviewed CT scan - pelvis: report reviewed Assessment and Plan (1) Femoral neck fracture Narrative/Plan: The patient has been seen by the orthopedic service, and surgical fixation has been recommended. The case was discussed with the orthopedic service. From our standpoint there is no cord indication to her having that procedure. Her current medication, Opdivo, does not have any VEGF related activity, and therefore does not increased surgical risk. Her blood counts are adequate, which is expected with this medication, since this is not myelosuppressive Status: Acute (2) Renal cell cancer Narrative/Plan: The patient has a left renal primary, with known metastasis to the mediastinal nodes as well as the right lung. The most recent computed tomography scan does show evidence of progression as noted in the HPI. However other treatment options are available for her. She does not have any known bone metastasis. Therefore most likely her fracture is traumatic and not pathologic. As other reasonable treatment options are available, the status of her malignancy is not a contraindication for her having the proposed surgery Status: Acute
[2016-08-17] MEDS: HYDROmorphone 1 MG/ML 1 ML SYRINGE IVP PRN ×3 (02:31→20:30)
[2016-08-17 06:57] LABS: Glucose,Whole Blood 148 mg/dL (75-99)
[2016-08-17 07:38] LABS: Anisocytosis Slight; Basophils % (A) 0 %; CHCM 29.1; Eosinophils # (A) 0.3 k/uL (0-0.7); Eosinophils % (A) 2 %; HCT 29.6 % (34.0-46.0); HDW 3.26; HGB 8.9 gm/dL (11.4-16.0); Hypochromasia Marked; Luc # (Auto) 0.18; Luc % (Auto) 1; Lymphocytes # (A) 1.3 k/uL (1.0-4.8); Lymphocytes % (A) 10 %; MCH 23.9 pg (25.0-35.0); MCHC 30.1 g/dL (31.0-37.0); MCV 79.3 fL (80.0-100.0); Mean Platelet Volume 6.8; Microcytosis Slight; Monocytes % (A) 8 %; Neutrophils # (A) 10.2 k/uL (1.3-7.7); Neutrophils % (A) 78 %; RBC 3.74 m/uL (3.80-5.40); RDW 16.6 % (11.5-15.5); WBC (Perox) 12.12
[2016-08-17 07:44] LABS: ALT 53 U/L (9-52); AST 66 U/L (14-36); Alkaline Phosphatase 214 U/L (38-126); Anion Gap 10 mmol/L; Blood Urea Nitrogen 9 mg/dL (7-17); Calcium 8.9 mg/dL (8.4-10.2); Carbon Dioxide 27 mmol/L (22-30); Chloride 97 mmol/L (98-107); Glucose 126 mg/dL (74-99); Non-African American GFR(MDRD) >60 (>60 ml/min/1.73 sqM); Potassium 4.2 mmol/L (3.5-5.1); Sodium 134 mmol/L (137-145); Total Bilirubin 0.8 mg/dL (0.2-1.3); Total Protein 6.3 g/dL (6.3-8.2)
[2016-08-17 08:07] LABS: Manual Review Performed
[2016-08-17] MEDS: ATENOLOL 50 MG TAB PO SCH (08:20)
[2016-08-17] MEDS: metFORMIN 500 MG TAB PO SCH ×2 (08:37→20:31)
[2016-08-17] MEDS: FAMOTIDINE 20 MG TAB PO SCH ×2 (08:37→20:31)
[2016-08-17] MEDS: INSULIN LISPRO (humaLOG) 300 UNIT/3 ML VIAL SQ SCH ×4 (08:37→21:54)
[2016-08-17] MEDS: SENNOSIDES-DOCUSATE SODIUM 1 EACH TAB PO SCH (08:38)
[2016-08-17] MEDS: OXYBUTYNIN XL 5 MG TAB.ER.24 PO SCH (08:38)
[2016-08-17] MEDS: POTASSIUM CHLORIDE ER 20 MEQ TAB.ER PO SCH (08:38)
[2016-08-17] MEDS ORDERED: IV FLUID CONTINUATION 1,000 ML IV ONE (08:49)
[2016-08-17] MEDS ORDERED: LACTATED RINGERS 1,000 ML IV ONE ×2 (09:12→11:16)
[2016-08-17 09:20] LABS: Glucose,Whole Blood 131 mg/dL (75-99)
[2016-08-17] MEDS ORDERED: ceFAZolin 1,000 MG in SODIUM CHLORIDE 0.9% 1,000 ML IRRIGATION ONE (09:30)
[2016-08-17] MEDS ORDERED: ceFAZolin 2 GM in SODIUM CHLORIDE 0.9% 100 ML IVPB STA (09:52)
[2016-08-17] MEDS ORDERED: KETAMINE 10 MG/ML 20 ML VIAL ONE (09:57)
[2016-08-17] MEDS ORDERED: fentaNYL (PF) 50 MCG/ML 2 ML AMP ONE (09:57)
[2016-08-17] MEDS ORDERED: MIDAZOLAM 2 MG/2 ML VIAL ONE (09:57)
--- NOTE | 2016-08-17 10:21 | ECHOF ---
Referral Reason:CAD MEASUREMENTS -------- HEIGHT: 170.2 cm WEIGHT: 84.8 kg BP: 124/57 RVIDd: 3.1 cm (< 3.3) IVSd: 1.0 cm (0.6 - 1.1) LVIDd: 5.5 cm (3.9 - 5.3) LVPWd: 1.1 cm (0.6 - 1.1) IVSs: 1.8 cm LVIDs: 3.4 cm LVPWs: 1.5 cm LA Diam: 2.9 cm (2.7 - 3.8) LAESV Index (A-L): 17.57 ml/m Ao Diam: 2.9 cm (2.0 - 3.7) AV Cusp: 1.6 cm (1.5 - 2.6) LA Diam: 2.6 cm (2.7 - 3.8) MV EXCURSION: 12.495 mm (> 18.000) MV EF SLOPE: 56 mm/s (70 - 150) EPSS: 1.1 cm MV E Manpreet: 0.85 m/s MV DecT: 288 ms MV A Manpreet: 1.13 m/s MV E/A Ratio: 0.75 FINDINGS -------- BBB This was a technically good study. Left ventricular wall thickness is normal. Overall left ventricular systolic function is mild-moderately impaired with, an EF between 40 - 45 %. Basal inferior LV wall motion is hypokinetic. Basal inferoseptal LV wall motion is hypokinetic. Mid inferoseptal LV wall motion is dyskinetic. The right ventricle is normal in size. Normal LA size by volume 22+/-6 ml/m2. The right atrium is normal in size. Aortic valve is trileaflet and is mildly thickened. The mitral valve leaflets are moderately thickened. Mild mitral annular calcification present. There is trace mitral regurgitation. Trace tricuspid regurgitation present. Pulmonic valve appears structurally normal. The aortic root size is normal. Normal inferior vena cava with normal inspiratory collapse consistent with estimated right atrial pressure of 5 mmHg. There is no pericardial effusion. CONCLUSIONS -------- 1. BBB 2. The right atrium is normal in size. 3. Aortic valve is trileaflet and is mildly thickened. 4. The mitral valve leaflets are moderately thickened. 5. Mild mitral annular calcification present. 6. There is trace mitral regurgitation. 7. Trace tricuspid regurgitation present. 8. Pulmonic valve appears structurally normal. 9. The aortic root size is normal. 10. There is no pericardial effusion. 11. This was a technically good study. 12. Left ventricular wall thickness is normal. 13. Overall left ventricular systolic function is mild-moderately impaired with, an EF between 40 - 45 %. 14. Basal inferior LV wall motion is hypokinetic. 15. Basal inferoseptal LV wall motion is hypokinetic. 16. Mid inferoseptal LV wall motion is dyskinetic. 17. The right ventricle is normal in size. 18. Normal LA size by volume 22+/-6 ml/m2. DIRECTOR SOCIAL WELFARE: Erika Bustillos RDCS
--- NOTE | 2016-08-17 11:04 | P.OP ---
Date of Procedure: 08/17/16 Preoperative Diagnosis: Subcapital fracture left hip Postoperative Diagnosis: Subcapital fracture left hip Procedure(s) Performed: Left hip hemiarthroplasty Implants: Bryant and nephew Polarstem size 4 standard Bryant & Nephew tandem unipolar cobalt chrome head, 44 mm Bryant & Nephew tandem unipolar +0 mm taper sleeve All components were press-fit. Anesthesia: spinal Surgeon: Kodi Elizabeth Substance Abuse Rn #1: Coretta Conklin Estimated Blood Loss (ml): 50 Pathology: other (Femoral head) Condition: stable Disposition: PACU Indications for Procedure: This is a 76-year-old female who sustained a fall at home and experienced a subcapital fracture of her left hip. After discussing the surgical and nonsurgical treatment options with her and her family, I recommended a left hip hemiarthroplasty, and informed consent was obtained. Operative Findings: Findings are consistent with a subcapital fracture of the left hip. Description of Procedure: Patient was seen and evaluated in the preoperative area, consent was reviewed and the operative site was marked with a skin marker. Patient was then brought to the operating room and given 2 g of Ancef intravenously. A spinal anesthetic was administered by the anesthesia department. Patient was then placed in a lateral decubitus position and held with a Montral hip positioner. The bony prominences were well-padded and an axillary roll was placed. The hip was then prepped and draped in the usual sterile fashion. A universal timeout was then performed which confirmed the patient's name, surgical site, ALLERGIES, and procedure. A standard anterolateral approach the hip was performed. Skin and subcutaneous tissues were sharply incised with an incision centered over the tip of the greater trochanter. The incision was carefully dissected down to the fascia. The fascia was then split in line with skin incision and a Charnley retractor was gently placed. The abductors were then identified, and the anterior one third of the abductors were released off the trochanter and one large sleeve. The fracture hematoma was evacuated and the proximal femur was exposed by externally rotating the femur. The fracture site was readily visualized. Next , using an osteotomy guide, the proximal femur was osteotomized at the appropriate level of the above the lesser trochanter. This bone was then removed. Attention was then turned to the femoral head. Using a corkscrew, the femoral head was removed from the acetabulum without incident. The acetabulum was inspected, and found to have no significant arthrosis. Femoral head was then measured. Attention was then redirected to the femur. Proximal femur was re-exposed and a box osteotome was used to lateralize the proximal femur. A dairy hand was then used to locate the femoral canal. Sequential broaching was then performed to the appropriate size. The calcar was then planed and trial head and neck were placed. The hip was then gently reduced. Leg lengths were checked and found to be equal. Hip was then taken through a full range of motion was stable throughout. The hip was then gently dislocated with the aid of a bone hook. The trial head and neck were then removed. The femoral broach was then inspected and found to have a secure fit. The broach was then removed. The hip was then copiously irrigated with antibiotic solution with a pulse lavage. Components were then opened and the femoral stem was then impacted into the proximal femur. The trunnion was cleaned and dried, and the femoral head and neck were then impacted. Hip was again gently reduced. Again leg lengths were checked and found to be equal, and the hip was taken through a full range of motion and found to be stable. The hip was again irrigated with pulsatile lavage. The abductors were then repaired through drill holes to the bone to the greater trochanter, utilizing #5 Ethibond suture. Next the fascia was repaired with #2 strata fix suture. The subcutaneous tissue was then repaired with 3-0 Vicryl. The subcuticular tissue was then repaired with 3-0 strata fix suture. Skin was then closed with Dermabond tape. A sterile dressing was then applied and the patient was transported to the recovery room in stable condition. Substance Abuse Rn CLIFF Solorzano was required due to the complexity of surgery the need for skilled registered nurse surgical services. She assisted with positioning the patient , draping the patient, retraction during the surgery, and closure of the wound.
[2016-08-17] MEDS: SERTRALINE 50 MG TAB PO SCH (11:21)
[2016-08-17] MEDS: ISOSORBIDE MONONITRATE ER 30 MG TAB.ER.24H PO SCH (11:21)
[2016-08-17] MEDS: FUROSEMIDE 40 MG TAB PO SCH (11:21)
[2016-08-17] MEDS ORDERED: HYDROmorphone 1 MG/ML 1 ML SYRINGE IVP PRN ×3 (11:24)
[2016-08-17] MEDS ORDERED: HYDROcodone/APAP 5-325MG 1 EACH TAB PO PRN (11:24)
[2016-08-17] MEDS ORDERED: NALOXONE 0.4 MG/ML 1 ML VIAL IV PRN (11:24)
[2016-08-17] MEDS ORDERED: ACETAMINOPHEN TAB 325 MG TAB PO PRN (11:24)
[2016-08-17] MEDS ORDERED: TEMAZEPAM 15 MG CAP PO PRN (11:24)
--- NOTE | 2016-08-17 11:46 | XR ---
EXAMINATION TYPE: XR Hip Limited LT DATE OF EXAM: 08/17/2016 11:42 AM COMPARISON: NONE HISTORY: Postop left hip Single view submitted. There is a prosthetic hip in near anatomic alignment. There is soft tissue edema and emphysema. IMPRESSION: 1. Postoperative change. Appears in near-anatomic alignment.
--- NOTE | 2016-08-17 13:20 | P.PN ---
Progress Note - Text This is a pleasant 76-year-old female patient who sees Dr. 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 The patient fell in the parking lot and fractured her left hip. She was seen by the orthopedic surgery service and she underwent surgery earlier today. From the cardiovascular standpoint overview, she denies having any chest pain or discomfort, she has chronic dyspnea which seems to be unchanged compared to before. Hemodynamically, she continues to be stable with a normal blood pressure and she continues to be in normal sinus mechanism. From the cardiac standpoint, we'll continue the current medical treatment. No need for any further cardiac workup at this point. She underwent an echocardiogram yesterday which showed mildly impaired LV function with EF about 40%.
[2016-08-17] MEDS: HYDROcodone/APAP 5-325MG 1 EACH TAB PO PRN (13:22)
--- NOTE | 2016-08-17 15:12 | P.PN ---
Subjective 76-year-old female one of Dr. Iggy Caraballo's patient with past medical history of CAD, A. 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 Quick for the last few weeks. Patient recently had CAT scan and other testing to determine the need for more chemotherapy. Patient was in the [employer] when she went out in the parking lot she felt quite bed lightheaded and her left leg gave out ended up falling in the parking lot slammer had the Increased floor developed to have laceration on the left side and bled quite bed. 911 was called patient brought to the emergency department at [facility] suture of the scalp area was done patient had severe pain in the left hip area x-ray revealed hip fracture in the left side. Patient was admitted to Dr. Elizabeth of service asking for medical clearance for possible surgery tomorrow. I had quite but discussion with the daughter today and more information patient apparently had stage IV renal cell CVA not clear how much metastasis she had this point. 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 Her surgery cannot be done tomorrow she need to be seen by cardiology and oncology for the insert and finding of her metastasis take cancer and the possibly of involving the bone. Also patient will have an echocardiogram and seeing cardiology for clearance before deciding to go for surgery. Patient ended up seen Dr. Huizar cardiology were requested an echocardiogram and a clear patient for surgery, also patient was seen Dr. Alves oncology review the last CAT scan order by his partner Dr. Quick and showed progression in cancer with metastasis but from his standpoint patient is a clear to go for surgery to fix the hip whether she is going go for hemiarthroplasty or ORIF she is a clear. 08/17: Patient is status post hemiarthroplasty. She denies any nausea or vomiting at this time. Pain is moderately controlled. Objective - Vital Signs Vital signs: Vital Signs Temp 98 F 08/17/16 11:22 Pulse 58 L 08/17/16 12:15 Resp 16 08/17/16 12:15 BP 144/67 08/17/16 12:15 Pulse Ox 97 08/17/16 12:15 Intake & Output 08/16/16 08/17/16 08/17/16 18:59 06:59 18:59 Intake Total 1090 1300 1226 Output Total 390 1400 150 Balance 700 -100 1076 Weight 84.822 kg Intake: IV 621 457 4671 Sodium Chloride 0.9% 1, 750 300 000 ml @ 100 mls/hr IV . Q10H [facility] Rx#:[id number] Intake, IV Titration 800 Amount Sodium Chloride 0.9% 1, 800 000 ml @ 100 mls/hr IV . Q10H [facility] Rx#:[id number] Oral 340 200 Output: Urine 390 1400 100 Uretheral ([place]) 390 1400 Estimated Blood Loss 50 Other: Voiding Method Indwelling Catheter Indwelling Catheter Indwelling Catheter - Exam General appearance: Present: cooperative, no acute distress. Absent: average body habitus, disheveled, mild distress, morbidly obese, obese, severe distress , thin - EENT Eyes: Present: normal appearance. Absent: abnormal pupil, anicteric sclerae, disc margins sharp, edentulous, EOMI, PERRLA, fundus normal, photophobia, dentition normal, poor dentition, ptosis, scleral icterus ENT: Present: hard of hearing. Absent: hearing grossly normal, NA/AT, normal oropharynx, other, pharyngeal erythema, thrush, tonsillar exudates, tonsillar swelling Ears: bilateral: normal - Neck Neck: Present: lymphadenopathy, normal ROM. Absent: other, rigidity, stridor, thyromegaly Carotids: bilateral: upstroke normal - Respiratory Respiratory: bilateral: CTA, diminished - Cardiovascular Rhythm: regular Heart sounds: normal: S1, S2 Abnormal Heart Sounds: Present: systolic murmur, S3 Gallop - Gastrointestinal General gastrointestinal: Present: decreased bowel sounds, scaphoid, soft. Absent: absent bowel sounds, distended, hepatomegaly, hyperactive bowel sounds, normal bowel sounds, organomegaly, rigid, splenomegaly, tenderness, umbilical hernia, ventral hernia - Integumentary Integumentary Comment(s): Significant pain and discomfort and left hip area with deformity slight rotation to the lateral side consistent with fracture of the hip area. Integumentary: Present: cellulitis, normal. Absent: calor, cyanotic, decreased turgor, flushed, jaundiced, normal turgor, pale, rash, ulcer - Neurologic Neurologic: Present: CNII-XII intact - Musculoskeletal Musculoskeletal: Present: gait normal, generalized weakness. Absent: strength equal bilaterally, right sided weakness, left sided weakness - Psychiatric Psychiatric: Present: A&O x's 3, appropriate affect. Absent: intact judgment & insight - Labs CBC & Chem 7: 08/17/16 06:33 08/17/16 06:33 Labs: Abnormal Lab Results - Last 24 Hours (Table) 08/16/16 08/16/16 08/17/16 Range/Units 17:05 20:00 06:33 WBC 13.0 H (3.8-10.6) k/uL RBC 3.74 L (3.80-5.40) m/uL Hgb 8.9 L (11.4-16.0) gm/dL Hct 29.6 L (34.0-46.0) % MCV 79.3 L (80.0-100.0) fL MCH 23.9 L (25.0-35.0) pg MCHC 30.1 L (31.0-37.0) g/dL RDW 16.6 H (11.5-15.5) % Plt Count 463 H (150-450) k/uL Neutrophils # 10.2 H (1.3-7.7) k/uL Sodium (137-145) mmol/L Chloride (98-107) mmol/L Glucose (74-99) mg/dL POC Glucose (mg/dL) 134 H 138 H (75-99) mg/dL AST (14-36) U/L ALT (9-52) U/L Alkaline Phosphatase (38-126) U/L Albumin (3.5-5.0) g/dL 08/17/16 08/17/16 08/17/16 Range/Units 06:33 06:50 09:08 WBC (3.8-10.6) k/uL RBC (3.80-5.40) m/uL Hgb (11.4-16.0) gm/dL Hct (34.0-46.0) % MCV (80.0-100.0) fL MCH (25.0-35.0) pg MCHC (31.0-37.0) g/dL RDW (11.5-15.5) % Plt Count (150-450) k/uL Neutrophils # (1.3-7.7) k/uL Sodium 134 L (137-145) mmol/L Chloride 97 L (98-107) mmol/L Glucose 126 H (74-99) mg/dL POC Glucose (mg/dL) 148 H 131 H (75-99) mg/dL AST 66 H (14-36) U/L ALT 53 H (9-52) U/L Alkaline Phosphatase 214 H (38-126) U/L Albumin 2.6 L (3.5-5.0) g/dL Assessment and Plan Plan: 1 left hip fracture: Patient eventually will need to go for surgery either for ORIF or hemiarthroplasty. Patient had significant increased risk factor for complications during after surgery with the and certain degree of her metastasis which can be involving the bone might need to have further testing including bone scan if needed because if the hip bone is involved with further metastasis that might change the whole philosophy of fixing this hip at this point. Her oncologist will be involved and review her testing and further recommendation to follow. With the 2 consultation done today but between oncology and cardiology patient is clear for surgery from my standpoint still have significant high risk for complications during after 2 close head trauma: Patient did not lose any consciousness according to her CAT scan of the brain did not show any bleeding continue to monitor patient neurologically closely. 3 advanced stage IV renal cell carcinoma with metastasis: Has been having chemotherapy with Dr. Quick regularly CT and other testing were done patient was post to discuss results with her oncologist this week. 4 CAD post PCI with 2 stent placement: Patient has not seen Dr. 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 Cardiac testing with echo will be done patient was cleared for surgery. 5 paroxysmal A. fib: Pulse rates under control patient is in sinus rhythm currently not on any anticoagulation. 6 hypertension: Patient is doing well on atenolol. 7 chronic edema: Has been on furosemide 40 mg daily. 8 severe GERD: Patient is on Zantac 150 milligrams twice a day. 9 chronic depression: Has been on Zoloft 50 mg daily. 10 diabetes type 2: Patient is on metformin 500 mg twice a day continue patient on Accu-Chek with sliding scales coverage. 11 hyperlipidemia: Has been on Lipitor 40 mg daily. 12 chronic incontinence: Has been in Myrbetriq 25 mg daily. GI prophylaxis: Remain on Zantac. DVT prophylaxis: Patient will be on heparin subcutaneous. CODE STATUS: Full code. Discharge plan: Rehab Impression and plan of care have been directed as dictated by the signing physician. Gretta Lou nurse practitioner acting as scribe for signing physician. Time with Patient: Greater than 30
[2016-08-17] MEDS: ceFAZolin 2 GM in SODIUM CHLORIDE 0.9% 100 ML IVPB SCH (16:23)
[2016-08-17] MEDS: LACTATED RINGERS 1,000 ML IV SCH ×2 (16:24→22:00)
[2016-08-17] MEDS: SODIUM CHLORIDE 0.9% 1,000 ML IV SCH ×2 (16:25→21:17)
[2016-08-17 17:05] LABS: Glucose,Whole Blood 212 mg/dL (75-99)
[2016-08-17] MEDS ORDERED: WARFARIN 5 MG TAB PO ONE (18:00)
[2016-08-17] MEDS: ATORVASTATIN 40 MG TAB PO SCH (20:31)
[2016-08-17 20:46] LABS: Glucose,Whole Blood 192 mg/dL (75-99)
[2016-08-18] MEDS: ceFAZolin 2 GM in SODIUM CHLORIDE 0.9% 100 ML IVPB SCH (00:55)
[2016-08-18] MEDS: HYDROcodone/APAP 5-325MG 1 EACH TAB PO PRN ×2 (01:02→08:25)
[2016-08-18] MEDS: SODIUM CHLORIDE 0.9% 1,000 ML IV SCH (05:28)
[2016-08-18 07:20] LABS: Glucose,Whole Blood 148 mg/dL (75-99)
[2016-08-18 07:28] LABS: Prothrombin Time 19.5 sec (9.0-12.0)
[2016-08-18 07:39] LABS: Anisocytosis Slight; Basophils % (A) 0 %; CH 23.6; CHCM 29.6; Eosinophils # (A) 0.1 k/uL (0-0.7); Eosinophils % (A) 1 %; HCT 29.6 % (34.0-46.0); HGB 8.7 gm/dL (11.4-16.0); Hypochromasia Marked; Luc # (Auto) 0.25; Luc % (Auto) 2; Lymphocytes % (A) 8 %; MCH 23.5 pg (25.0-35.0); MCHC 29.3 g/dL (31.0-37.0); MCV 80.2 fL (80.0-100.0); Mean Platelet Volume 7.3; Microcytosis Slight; Monocytes # (A) 0.9 k/uL (0-1.0); Monocytes % (A) 8 %; Neutrophils # (A) 9.9 k/uL (1.3-7.7); Neutrophils % (A) 81 %; RBC 3.69 m/uL (3.80-5.40); RDW 17.2 % (11.5-15.5); WBC 12.1 k/uL (3.8-10.6); WBC (Perox) 11.47
[2016-08-18] MEDS ORDERED: MAGNESIUM HYDROXIDE 2,400 MG/10 ML CUP PO PRN (08:37)
--- NOTE | 2016-08-18 08:39 | P.PN ---
Subjective Principal diagnosis: Status post left hip hemiarthroplasty This is a 76 year-old female post left hip hemiarthroplasty. This is post-op day 1. The patient was evaluated at the bedside today. The patient denies nausea, vomiting, abdominal pain, shortness of breath, and chest pain this morning. She states her pain is not controlled at this time. She also states that she has not had a bowel movement in over one week. The patient has not been up with physical therapy yet this morning. Objective - Vital Signs Vital signs: Vital Signs Temp 97.6 F 08/18/16 03:34 Pulse 67 08/18/16 03:34 Resp 16 08/18/16 03:34 BP 128/64 08/18/16 03:34 Pulse Ox 93 L 08/18/16 03:34 Intake & Output 08/17/16 08/18/16 08/18/16 18:59 06:59 18:59 Intake Total 1586 700 Output Total 150 700 Balance 1436 0 Intake: IV 1226 Oral 360 700 Output: Urine 100 700 Uretheral ([place]) 700 Estimated Blood Loss 50 Other: Voiding Method Indwelling Catheter Indwelling Catheter - Exam The patient does not appear in acute distress. Alert and orientated x3. Dressing is clean dry and intact. Incision appears fine with no erythema or active drainage. Calf is soft and nontender. She is unable to move her foot and ankle which she states that she was unable to before surgery. Sensation and circulatory status is intact. - Labs CBC & Chem 7: 08/18/16 07:00 08/17/16 06:33 Labs: Abnormal Lab Results - Last 24 Hours (Table) 08/17/16 08/17/16 08/17/16 Range/Units 09:08 16:42 20:34 WBC (3.8-10.6) k/uL RBC (3.80-5.40) m/uL Hgb (11.4-16.0) gm/dL Hct (34.0-46.0) % MCH (25.0-35.0) pg MCHC (31.0-37.0) g/dL RDW (11.5-15.5) % Neutrophils # (1.3-7.7) k/uL PT (9.0-12.0) sec POC Glucose (mg/dL) 131 H 212 H 192 H (75-99) mg/dL 08/18/16 08/18/16 08/18/16 Range/Units 07:00 07:00 07:08 WBC 12.1 H (3.8-10.6) k/uL RBC 3.69 L (3.80-5.40) m/uL Hgb 8.7 L (11.4-16.0) gm/dL Hct 29.6 L (34.0-46.0) % MCH 23.5 L (25.0-35.0) pg MCHC 29.3 L (31.0-37.0) g/dL RDW 17.2 H (11.5-15.5) % Neutrophils # 9.9 H (1.3-7.7) k/uL PT 19.5 H (9.0-12.0) sec POC Glucose (mg/dL) 148 H (75-99) mg/dL Laboratory Tests 08/18/16 07:00 PT 19.5 H INR 2.0 Assessment and Plan (1) Fall Status: Acute (2) Femoral neck fracture Status: Acute (3) Status post hip hemiarthroplasty Status: Acute Plan: 1. Continue pain control 2. Anticoagulation with Coumadin per protocol 3. Start physical therapy and ambulation today 4. Continue Senokot-S and milk of magnesia will be ordered. 5. Anticipate discharge to skilled rehab most likely on Sunday
[2016-08-18] MEDS ORDERED: KETOROLAC 30 MG/ML 1 ML VIAL IVP PRN (09:00)
[2016-08-18] MEDS: INSULIN LISPRO (humaLOG) 300 UNIT/3 ML VIAL SQ SCH ×4 (09:38→22:38)
[2016-08-18] MEDS: LACTATED RINGERS 1,000 ML IV SCH (09:38)
[2016-08-18] MEDS: OXYBUTYNIN XL 5 MG TAB.ER.24 PO SCH (09:39)
[2016-08-18] MEDS: FAMOTIDINE 20 MG TAB PO SCH ×2 (09:39→21:19)
[2016-08-18] MEDS: ISOSORBIDE MONONITRATE ER 30 MG TAB.ER.24H PO SCH (09:39)
[2016-08-18] MEDS: ATENOLOL 50 MG TAB PO SCH (09:39)
[2016-08-18] MEDS: metFORMIN 500 MG TAB PO SCH ×2 (09:39→21:19)
[2016-08-18] MEDS: POTASSIUM CHLORIDE ER 20 MEQ TAB.ER PO SCH (09:39)
[2016-08-18] MEDS: SERTRALINE 50 MG TAB PO SCH (09:39)
[2016-08-18] MEDS: FUROSEMIDE 40 MG TAB PO SCH (09:39)
[2016-08-18] MEDS: MULTIVITAMINS, THERA 1 EACH TAB PO SCH (09:44)
[2016-08-18] MEDS: SENNOSIDES-DOCUSATE SODIUM 1 EACH TAB PO SCH (09:48)
[2016-08-18 11:44] LABS: Glucose,Whole Blood 166 mg/dL (75-99)
[2016-08-18] MEDS: HYDROcodone/APAP 7.5-325MG 1 EACH TAB PO PRN ×3 (13:46→23:30)
[2016-08-18] MEDS: hydrOXYzine PAMOATE 25 MG CAP PO PRN ×2 (13:46→18:03)
--- NOTE | 2016-08-18 14:50 | P.PN ---
Subjective 76-year-old female one of Dr. Iggy Caraballo's patient with past medical history of CAD, A. 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 Quick for the last few weeks. Patient recently had CAT scan and other testing to determine the need for more chemotherapy. Patient was in the [employer] when she went out in the parking lot she felt quite bed lightheaded and her left leg gave out ended up falling in the parking lot slammer had the Increased floor developed to have laceration on the left side and bled quite bed. 911 was called patient brought to the emergency department at [facility] suture of the scalp area was done patient had severe pain in the left hip area x-ray revealed hip fracture in the left side. Patient was admitted to Dr. Elizabeth of service asking for medical clearance for possible surgery tomorrow. I had quite but discussion with the daughter today and more information patient apparently had stage IV renal cell CVA not clear how much metastasis she had this point. Also patient has not seen her oil expert and has not had any workup in the lost few years. Her surgery cannot be done tomorrow she need to be seen by cardiology and oncology for the insert and finding of her metastasis take cancer and the possibly of involving the bone. Also patient will have an echocardiogram and seeing cardiology for clearance before deciding to go for surgery. Patient ended up seen Dr. Huizar cardiology were requested an echocardiogram and a clear patient for surgery, also patient was seen Dr. Alves oncology review the last CAT scan order by his partner Dr. Quick and showed progression in cancer with metastasis but from his standpoint patient is a clear to go for surgery to fix the hip whether she is going go for hemiarthroplasty or ORIF she is a clear. 08/17: Patient is status post hemiarthroplasty. She denies any nausea or vomiting at this time. Pain is moderately controlled. 08/18: Patient is seen sitting up in a chair. She is complaining of pain control is an issue. She is on IV Dilaudid. IV fluids will be discontinued. Hemoglobin at 8.7 and INR 2.0. She is on the Coumadin protocol. Capillary blood glucose running between 148 and 192. Hays catheter remains in place. Anticipate discharge to rehab on Sunday Objective - Vital Signs Vital signs: Vital Signs Temp 96.9 F L 08/18/16 14:12 Pulse 65 08/18/16 14:12 Resp 17 08/18/16 14:12 BP 108/57 08/18/16 14:12 Pulse Ox 100 08/18/16 14:12 Intake & Output 08/17/16 08/18/16 08/18/16 18:59 06:59 18:59 Intake Total 1586 700 840 Output Total 150 700 475 Balance 1436 0 365 Weight 84.822 kg Intake: IV 1226 Oral 360 700 840 Output: Urine 100 700 475 Uretheral (Hays) 700 475 Estimated Blood Loss 50 Other: Voiding Method Indwelling Catheter Indwelling Catheter Indwelling Catheter - Exam General appearance: Present: cooperative, no acute distress. Absent: average body habitus, disheveled, mild distress, morbidly obese, obese, severe distress , thin - EENT Eyes: Present: normal appearance. Absent: abnormal pupil, anicteric sclerae, disc margins sharp, edentulous, EOMI, PERRLA, fundus normal, photophobia, dentition normal, poor dentition, ptosis, scleral icterus ENT: Present: hard of hearing. Absent: hearing grossly normal, NA/AT, normal oropharynx, other, pharyngeal erythema, thrush, tonsillar exudates, tonsillar swelling Ears: bilateral: normal - Neck Neck: Present: lymphadenopathy, normal ROM. Absent: other, rigidity, stridor, thyromegaly Carotids: bilateral: upstroke normal - Respiratory Respiratory: bilateral: CTA, diminished - Cardiovascular Rhythm: regular Heart sounds: normal: S1, S2 Abnormal Heart Sounds: Present: systolic murmur, S3 Gallop - Gastrointestinal General gastrointestinal: Present: decreased bowel sounds, scaphoid, soft. Absent: absent bowel sounds, distended, hepatomegaly, hyperactive bowel sounds, normal bowel sounds, organomegaly, rigid, splenomegaly, tenderness, umbilical hernia, ventral hernia - Integumentary Integumentary Comment(s): Significant pain and discomfort and left hip area with deformity slight rotation to the lateral side consistent with fracture of the hip area. Integumentary: Present: cellulitis, normal. Absent: calor, cyanotic, decreased turgor, flushed, jaundiced, normal turgor, pale, rash, ulcer - Neurologic Neurologic: Present: CNII-XII intact - Musculoskeletal Musculoskeletal: Present: gait normal, generalized weakness. Absent: strength equal bilaterally, right sided weakness, left sided weakness - Psychiatric Psychiatric: Present: A&O x's 3, appropriate affect. Absent: intact judgment & insight - Labs CBC & Chem 7: 08/18/16 07:00 08/17/16 06:33 Labs: Abnormal Lab Results - Last 24 Hours (Table) 08/17/16 08/17/16 08/18/16 Range/Units 16:42 20:34 07:00 WBC 12.1 H (3.8-10.6) k/uL RBC 3.69 L (3.80-5.40) m/uL Hgb 8.7 L (11.4-16.0) gm/dL Hct 29.6 L (34.0-46.0) % MCH 23.5 L (25.0-35.0) pg MCHC 29.3 L (31.0-37.0) g/dL RDW 17.2 H (11.5-15.5) % Neutrophils # 9.9 H (1.3-7.7) k/uL PT (9.0-12.0) sec POC Glucose (mg/dL) 212 H 192 H (75-99) mg/dL 08/18/16 08/18/16 08/18/16 Range/Units 07:00 07:08 11:36 WBC (3.8-10.6) k/uL RBC (3.80-5.40) m/uL Hgb (11.4-16.0) gm/dL Hct (34.0-46.0) % MCH (25.0-35.0) pg MCHC (31.0-37.0) g/dL RDW (11.5-15.5) % Neutrophils # (1.3-7.7) k/uL PT 19.5 H (9.0-12.0) sec POC Glucose (mg/dL) 148 H 166 H (75-99) mg/dL Assessment and Plan Plan: 1 left hip fracture: Patient eventually will need to go for surgery either for ORIF or hemiarthroplasty. Patient had significant increased risk factor for complications during after surgery with the and certain degree of her metastasis which can be involving the bone might need to have further testing including bone scan if needed because if the hip bone is involved with further metastasis that might change the whole philosophy of fixing this hip at this point. Her oncologist will be involved and review her testing and further recommendation to follow. With the 2 consultation done today but between oncology and cardiology patient is clear for surgery from my standpoint still have significant high risk for complications during after 2 close head trauma: Patient did not lose any consciousness according to her CAT scan of the brain did not show any bleeding continue to monitor patient neurologically closely. 3 advanced stage IV renal cell carcinoma with metastasis: Has been having chemotherapy with Dr. Quick regularly CT and other testing were done patient was post to discuss results with her oncologist this week. 4 CAD post PCI with 2 stent placement: Patient has not seen Dr. Mark on her oil expert and over a year will order an echocardiogram and cardiology consultation. Cardiac testing with echo will be done patient was cleared for surgery. 5 paroxysmal A. fib: Pulse rates under control patient is in sinus rhythm currently not on any anticoagulation. 6 hypertension: Patient is doing well on atenolol. 7 chronic edema: Has been on furosemide 40 mg daily. 8 severe GERD: Patient is on Zantac 150 milligrams twice a day. 9 chronic depression: Has been on Zoloft 50 mg daily. 10 diabetes type 2: Patient is on metformin 500 mg twice a day continue patient on Accu-Chek with sliding scales coverage. 11 hyperlipidemia: Has been on Lipitor 40 mg daily. 12 chronic incontinence: Has been in Myrbetriq 25 mg daily. GI prophylaxis: Remain on Zantac. DVT prophylaxis: Patient will be on heparin subcutaneous. CODE STATUS: Full code. Discharge plan: Rehab Impression and plan of care have been directed as dictated by the signing physician. Gretta Lou nurse practitioner acting as scribe for signing physician. Time with Patient: Greater than 30
[2016-08-18 16:38] LABS: Glucose,Whole Blood 172 mg/dL (75-99)
[2016-08-18] MEDS ORDERED: WARFARIN 2.5 MG TAB PO ONE (18:00)
[2016-08-18 21:16] LABS: Glucose,Whole Blood 169 mg/dL (75-99)
[2016-08-18] MEDS: ATORVASTATIN 40 MG TAB PO SCH (21:19)
[2016-08-19 07:21] LABS: Glucose,Whole Blood 122 mg/dL (75-99)
[2016-08-19 07:35] LABS: Prothrombin Time 39.1 sec (9.0-12.0)
[2016-08-19 07:43] LABS: Anion Gap 10 mmol/L; Blood Urea Nitrogen 15 mg/dL (7-17); Calcium 8.5 mg/dL (8.4-10.2); Carbon Dioxide 29 mmol/L (22-30); Chloride 99 mmol/L (98-107); Glucose 119 mg/dL (74-99); Non-African American GFR(MDRD) >60 (>60 ml/min/1.73 sqM); Potassium 4.4 mmol/L (3.5-5.1); Sodium 138 mmol/L (137-145)
[2016-08-19 07:54] LABS: Anisocytosis Slight; Basophils % (A) 0 %; CH 22.9; CHCM 28.5; Eosinophils # (A) 0.4 k/uL (0-0.7); Eosinophils % (A) 4 %; HCT 27.6 % (34.0-46.0); HDW 3.22; HGB 7.9 gm/dL (11.4-16.0); Hypochromasia Marked; Luc # (Auto) 0.24; Luc % (Auto) 2; Lymphocytes # (A) 1.3 k/uL (1.0-4.8); Lymphocytes % (A) 12 %; MCH 23.1 pg (25.0-35.0); MCHC 28.6 g/dL (31.0-37.0); MCV 80.8 fL (80.0-100.0); Mean Platelet Volume 7.3; Monocytes # (A) 0.9 k/uL (0-1.0); Monocytes % (A) 7 %; Neutrophils # (A) 8.6 k/uL (1.3-7.7); Neutrophils % (A) 75 %; RBC 3.41 m/uL (3.80-5.40); RDW 16.9 % (11.5-15.5); WBC 11.4 k/uL (3.8-10.6); WBC (Perox) 11.03
[2016-08-19 08:24] LABS: Rouleaux Present
[2016-08-19] MEDS: INSULIN LISPRO (humaLOG) 300 UNIT/3 ML VIAL SQ SCH ×4 (08:29→20:53)
[2016-08-19] MEDS: ATENOLOL 50 MG TAB PO SCH (08:37)
[2016-08-19] MEDS: metFORMIN 500 MG TAB PO SCH ×2 (08:37→20:53)
[2016-08-19] MEDS: ISOSORBIDE MONONITRATE ER 30 MG TAB.ER.24H PO SCH (08:37)
[2016-08-19] MEDS: OXYBUTYNIN XL 5 MG TAB.ER.24 PO SCH (08:38)
[2016-08-19] MEDS: POTASSIUM CHLORIDE ER 20 MEQ TAB.ER PO SCH (08:38)
[2016-08-19] MEDS: FAMOTIDINE 20 MG TAB PO SCH ×2 (08:38→20:53)
[2016-08-19] MEDS: SERTRALINE 50 MG TAB PO SCH (08:38)
[2016-08-19] MEDS: FUROSEMIDE 40 MG TAB PO SCH (08:38)
[2016-08-19] MEDS: HYDROcodone/APAP 7.5-325MG 1 EACH TAB PO PRN ×2 (08:42→18:00)
[2016-08-19] MEDS: SENNOSIDES-DOCUSATE SODIUM 1 EACH TAB PO SCH (08:42)
--- NOTE | 2016-08-19 09:41 | P.PN ---
Subjective Principal diagnosis: Status post left hip hemiarthroplasty This is a 76 year-old female post left hip hemiarthroplasty. This is post-op day 2. The patient was evaluated at the bedside in the recliner chair. She states that she still has not had a bowel movement yet. The patient denies dizziness but she says she is very tired. Objective - Vital Signs Vital signs: Vital Signs Temp 98.2 F 08/19/16 08:44 Pulse 72 08/19/16 08:44 Resp 16 08/19/16 08:44 BP 133/65 08/19/16 08:44 Pulse Ox 93 L 08/19/16 08:44 Intake & Output 08/18/16 08/19/16 08/19/16 18:59 06:59 18:59 Intake Total 1820 200 Output Total 475 500 Balance 1345 -300 Weight 84.822 kg Intake: Intake, IV Titration 500 Amount Lactated Ringers 1,000 ml 500 @ 100 mls/hr IV .Q10H JOY Rx#:[id number] Oral 1320 200 Output: Urine 475 500 Uretheral (Hays) 475 500 Other: Voiding Method Indwelling Catheter Indwelling Catheter - Exam The patient does not appear in acute distress. Alert and orientated x3. Dressing is clean dry and intact. Incision appears fine with no erythema or active drainage. Calf is soft and nontender. She is unable to move her foot and ankle which she states that she was unable to before surgery. Sensation and circulatory status is intact. - Labs CBC & Chem 7: 08/19/16 07:06 08/19/16 07:06 Labs: Abnormal Lab Results - Last 24 Hours (Table) 08/18/16 08/18/16 08/18/16 Range/Units 11:36 16:33 21:06 WBC (3.8-10.6) k/uL RBC (3.80-5.40) m/uL Hgb (11.4-16.0) gm/dL Hct (34.0-46.0) % MCH (25.0-35.0) pg MCHC (31.0-37.0) g/dL RDW (11.5-15.5) % Neutrophils # (1.3-7.7) k/uL PT (9.0-12.0) sec Glucose (74-99) mg/dL POC Glucose (mg/dL) 166 H 172 H 169 H (75-99) mg/dL 08/19/16 08/19/16 08/19/16 Range/Units 07:06 07:06 07:06 WBC 11.4 H (3.8-10.6) k/uL RBC 3.41 L (3.80-5.40) m/uL Hgb 7.9 L (11.4-16.0) gm/dL Hct 27.6 L (34.0-46.0) % MCH 23.1 L (25.0-35.0) pg MCHC 28.6 L (31.0-37.0) g/dL RDW 16.9 H (11.5-15.5) % Neutrophils # 8.6 H (1.3-7.7) k/uL PT 39.1 H (9.0-12.0) sec Glucose 119 H (74-99) mg/dL POC Glucose (mg/dL) (75-99) mg/dL 08/19/16 Range/Units 07:19 WBC (3.8-10.6) k/uL RBC (3.80-5.40) m/uL Hgb (11.4-16.0) gm/dL Hct (34.0-46.0) % MCH (25.0-35.0) pg MCHC (31.0-37.0) g/dL RDW (11.5-15.5) % Neutrophils # (1.3-7.7) k/uL PT (9.0-12.0) sec Glucose (74-99) mg/dL POC Glucose (mg/dL) 122 H (75-99) mg/dL Laboratory Tests 08/19/16 07:06 PT 39.1 H INR 4.0 Assessment and Plan (1) Fall Status: Acute (2) Femoral neck fracture Status: Acute (3) Status post hip hemiarthroplasty Status: Acute Plan: 1. Continue pain control 2. Anticoagulation with Coumadin per protocol, hold Coumadin today for INR 4.0 3. Continue physical therapy and ambulation today 4. Continue Senokot-S and milk of magnesia is also ordered. 5. Recheck CBC tomorrow 6. Anticipate discharge to skilled rehab most likely on Sunday
[2016-08-19 11:50] LABS: Glucose,Whole Blood 155 mg/dL (75-99)
[2016-08-19] MEDS: MULTIVITAMINS, THERA 1 EACH TAB PO SCH (12:05)
[2016-08-19 16:46] LABS: Glucose,Whole Blood 167 mg/dL (75-99)
[2016-08-19 20:51] LABS: Glucose,Whole Blood 142 mg/dL (75-99)
[2016-08-19] MEDS: ATORVASTATIN 40 MG TAB PO SCH (20:53)
--- NOTE | 2016-08-19 21:08 | PN ---
INTERVAL HISTORY: The patient continues to be hemodynamically stable. Still frustrated with her cancer treatment and was told that the cancer treatment will be placed on hold for the next six weeks. The patient alert, awake and oriented. Denied chest pain, nausea or vomiting or abdominal pain. Physical examination: Vital signs reviewed and stable. LUNGS: Clear to auscultation bilaterally. CARDIOVASCULAR: Heart, S1, S2. ABDOMEN: Soft, nontender. Positive bowel sounds in all four quadrants. EXTREMITIES: Right lower extremity trace edema. PSYCHIATRY: Alert and oriented times three. SKIN: No new rash. Imaging and labs reviewed. IMPRESSION AND PLAN: 1. Femoral neck fracture status post open reduction and internal fixation will continue PT/OT, pain management, DVT prophylaxis per surgery recommendations. 2. Renal cell carcinoma Stage IV, ( ) placed on hold by Dr. Vickers for the next six weeks. We will follow-up outpatient ( ) recommendations. 3. Coronary artery disease, seems to be compensated. 4. Atrial fibrillation, heart rate is controlled. 5. Anticoagulation per surgery recommendations. 6. ( ). 7. Hypertension, under control. 8. Malnutriton, will encourage p.o. intake and ( ) Ensure three times daily as needed. 9. Debility and weakness, we will have PT/OT evaluate the patient, continue discharging to senior living per recommendations.
[2016-08-20] MEDS: HYDROcodone/APAP 7.5-325MG 1 EACH TAB PO PRN ×3 (03:41→22:14)
[2016-08-20 07:27] LABS: Glucose,Whole Blood 124 mg/dL (75-99)
[2016-08-20 07:37] LABS: INR 4.4 (<1.1); Prothrombin Time 43.1 sec (9.0-12.0)
[2016-08-20] MEDS: INSULIN LISPRO (humaLOG) 300 UNIT/3 ML VIAL SQ SCH ×4 (07:43→21:09)
[2016-08-20] MEDS: ISOSORBIDE MONONITRATE ER 30 MG TAB.ER.24H PO SCH (07:51)
[2016-08-20] MEDS: POTASSIUM CHLORIDE ER 20 MEQ TAB.ER PO SCH (07:51)
[2016-08-20] MEDS: FUROSEMIDE 40 MG TAB PO SCH (07:51)
[2016-08-20] MEDS: ATENOLOL 50 MG TAB PO SCH (07:51)
[2016-08-20] MEDS: MULTIVITAMINS, THERA 1 EACH TAB PO SCH (07:51)
[2016-08-20] MEDS: FAMOTIDINE 20 MG TAB PO SCH ×2 (07:51→21:11)
[2016-08-20] MEDS: OXYBUTYNIN XL 5 MG TAB.ER.24 PO SCH (07:52)
[2016-08-20] MEDS: SERTRALINE 50 MG TAB PO SCH (07:52)
[2016-08-20] MEDS: metFORMIN 500 MG TAB PO SCH ×2 (07:52→21:11)
[2016-08-20] MEDS: SENNOSIDES-DOCUSATE SODIUM 1 EACH TAB PO SCH (07:54)
[2016-08-20 10:45] LABS: Anisocytosis Slight; Basophils % (A) 0 %; CH 22.8; CHCM 28.4; Eosinophils # (A) 0.4 k/uL (0-0.7); Eosinophils % (A) 3 %; HCT 27.4 % (34.0-46.0); HDW 3.17; HGB 7.9 gm/dL (11.4-16.0); Hypochromasia Marked; Luc # (Auto) 0.24; Luc % (Auto) 2; Lymphocytes % (A) 10 %; MCH 23.2 pg (25.0-35.0); MCHC 28.8 g/dL (31.0-37.0); MCV 80.7 fL (80.0-100.0); Mean Platelet Volume 6.4; Monocytes # (A) 0.6 k/uL (0-1.0); Monocytes % (A) 6 %; Neutrophils # (A) 8.7 k/uL (1.3-7.7); Neutrophils % (A) 79 %; RDW 16.9 % (11.5-15.5); WBC (Perox) 11.91
--- NOTE | 2016-08-20 11:12 | P.PN ---
Subjective Principal diagnosis: Status post left hip hemiarthroplasty This is a 76 year-old female post left hip hemiarthroplasty. This is post-op day 3. The patient was evaluated at the bedside in the recliner chair. She states that she still has not had a bowel movement yet. The patient denies dizziness but she says she is still very tired. Objective - Vital Signs Vital signs: Vital Signs Temp 98.0 F 08/20/16 07:43 Pulse 68 08/20/16 07:43 Resp 18 08/20/16 07:43 BP 128/53 08/20/16 07:43 Pulse Ox 95 08/20/16 07:43 Intake & Output 08/19/16 08/20/16 08/20/16 18:59 06:59 18:59 Intake Total 840 Output Total 620 200 Balance 220 -200 Intake: Oral 840 Output: Urine 620 200 Uretheral (Hays) 600 Other: Voiding Method Indwelling Catheter Bedpan Bedpan # Voids 1 # Bowel Movements 1 - Exam The patient does not appear in acute distress. Alert and orientated x3. Dressing is clean dry and intact. Incision appears fine with no erythema or active drainage. Calf is soft and nontender. Limited ROM of her foot and ankle which she states that she was unable to before surgery. Sensation and circulatory status is intact. - Labs CBC & Chem 7: 08/20/16 10:27 08/19/16 07:06 Labs: Abnormal Lab Results - Last 24 Hours (Table) 08/19/16 08/19/16 08/19/16 Range/Units 11:27 16:45 20:50 WBC (3.8-10.6) k/uL RBC (3.80-5.40) m/uL Hgb (11.4-16.0) gm/dL Hct (34.0-46.0) % MCH (25.0-35.0) pg MCHC (31.0-37.0) g/dL RDW (11.5-15.5) % Neutrophils # (1.3-7.7) k/uL PT (9.0-12.0) sec POC Glucose (mg/dL) 155 H 167 H 142 H (75-99) mg/dL 08/20/16 08/20/16 08/20/16 Range/Units 06:45 07:05 10:27 WBC 11.0 H (3.8-10.6) k/uL RBC 3.40 L (3.80-5.40) m/uL Hgb 7.9 L (11.4-16.0) gm/dL Hct 27.4 L (34.0-46.0) % MCH 23.2 L (25.0-35.0) pg MCHC 28.8 L (31.0-37.0) g/dL RDW 16.9 H (11.5-15.5) % Neutrophils # 8.7 H (1.3-7.7) k/uL PT 43.1 H (9.0-12.0) sec POC Glucose (mg/dL) 124 H (75-99) mg/dL Laboratory Tests 08/20/16 07:05 PT 43.1 H INR 4.4 Assessment and Plan (1) Fall Status: Acute (2) Femoral neck fracture Status: Acute (3) Status post hip hemiarthroplasty Status: Acute Plan: 1. Continue pain control 2. Anticoagulation with Coumadin per protocol, hold Coumadin today for INR 4.4 3. Continue physical therapy and ambulation today 4. Continue Senokot-S and milk of magnesia is also ordered. 5. Recheck CBC and INR tomorrow 6. Anticipate discharge to skilled rehab most likely on Sunday
[2016-08-20 12:14] LABS: Glucose,Whole Blood 153 mg/dL (75-99)
[2016-08-20 16:57] LABS: Glucose,Whole Blood 215 mg/dL (75-99)
--- NOTE | 2016-08-20 18:40 | PN ---
INTERVAL HISTORY: Patient continued to be hemodynamically stable overnight, currently in bed, motivated to go up in chair, denying chest pain, shortness of breath, nausea, vomiting, abdominal pain, dizziness, lightheadedness or blurry vision. Said that her pain is under fair control at this point. Patient is tolerating diet and trying to eat more than 50% of her meals all the time. PHYSICAL EXAMINATION: Vital signs were reviewed and stable. LUNGS: Diminished bilaterally. HEART: Normal S1, S2. ABDOMEN: Soft, no tenderness, positive bowel sounds in all 4 quadrants. SKIN: No rash. PSYCH: Alert and oriented x3. NEURO: No focal deficits. IMAGING AND LABS: CBC revealed a hemoglobin of 7.9, white blood count 11, platelets within normal limit. PT, INR elevated at 4.4, glucose fluctuating between 124 and 153. ASSESSMENT AND PLAN: 1. Femoral neck fracture, status post open reduction and internal fixation. Will continue with current pain management. We would like to hold Coumadin today for INR goal between 2 and 3. We will continue with PT, OT recommendation regarding discharge planning in the morning. 2. Anemia, hemoglobin 7.9, will continue monitoring. Patient is asymptomatic at this point. 3. ( ). Patient will continue with current bowel regimen. 4. Renal cell carcinoma stage IV, chemotherapy for about [address] Quick. 5. Discharge planning in the morning based on clinical progress.
[2016-08-20 21:09] LABS: Glucose,Whole Blood 195 mg/dL (75-99)
[2016-08-20] MEDS: ATORVASTATIN 40 MG TAB PO SCH (21:11)
[2016-08-21 06:56] LABS: Glucose,Whole Blood 115 mg/dL (75-99)
[2016-08-21 06:59] VITALS: BP 123/50; PULSE 66; RESP 16; TEMP 98.1
[2016-08-21] MEDS: SERTRALINE 50 MG TAB PO SCH (07:01)
[2016-08-21] MEDS: metFORMIN 500 MG TAB PO SCH (07:01)
[2016-08-21] MEDS: FAMOTIDINE 20 MG TAB PO SCH (07:01)
[2016-08-21] MEDS: ATENOLOL 50 MG TAB PO SCH (07:01)
[2016-08-21] MEDS: ISOSORBIDE MONONITRATE ER 30 MG TAB.ER.24H PO SCH (07:01)
[2016-08-21] MEDS: HYDROcodone/APAP 7.5-325MG 1 EACH TAB PO PRN ×2 (07:01→13:57)
[2016-08-21] MEDS: POTASSIUM CHLORIDE ER 20 MEQ TAB.ER PO SCH (07:02)
[2016-08-21] MEDS: OXYBUTYNIN XL 5 MG TAB.ER.24 PO SCH (07:02)
[2016-08-21] MEDS: FUROSEMIDE 40 MG TAB PO SCH (07:02)
[2016-08-21 07:46] LABS: Anisocytosis Slight; Basophils % (A) 0 %; CH 22.7; CHCM 27.9; Eosinophils # (A) 0.4 k/uL (0-0.7); Eosinophils % (A) 3 %; HCT 30.3 % (34.0-46.0); HDW 3.09; HGB 8.6 gm/dL (11.4-16.0); Hypochromasia Marked; Luc # (Auto) 0.34; Luc % (Auto) 3; Lymphocytes # (A) 1.2 k/uL (1.0-4.8); Lymphocytes % (A) 11 %; MCH 23.2 pg (25.0-35.0); MCHC 28.4 g/dL (31.0-37.0); MCV 81.6 fL (80.0-100.0); Mean Platelet Volume 6.5; Monocytes # (A) 0.7 k/uL (0-1.0); Monocytes % (A) 6 %; Neutrophils % (A) 77 %; RBC 3.71 m/uL (3.80-5.40); RDW 16.9 % (11.5-15.5); WBC 11.6 k/uL (3.8-10.6); WBC (Perox) 11.78
[2016-08-21 07:49] LABS: INR 2.8 (<1.1); Prothrombin Time 26.7 sec (9.0-12.0)
[2016-08-21] MEDS: INSULIN LISPRO (humaLOG) 300 UNIT/3 ML VIAL SQ SCH ×2 (08:46→13:33)
--- NOTE | 2016-08-21 09:54 | P.DS ---
Providers Date of admission: 08/15/16 15:05 Expected date of discharge: 08/21/16 Attending physician: Kodi Elizabeth Consults: 08/15/16 21:05 Consult Physician Urgent Consulting Provider: Giovany Haro Consult Reason/Comments: history of Afib Do you want consulting provider notified?: Yes 08/15/16 21:10 Consult Physician Urgent Consulting Provider: Heidi Quick Consult Reason/Comments: history of cancer Do you want consulting provider notified?: Yes Primary care physician: Iggy Caraballo - Discharge Diagnosis(es) (1) Fall Status: Acute (2) Femoral neck fracture Status: Acute (3) Scalp laceration Status: Acute Hospital Course: This is a pleasant 76-year-old female who sustained a fall onto her left hip. She presented to the emergency department at [facility] where x-rays revealed femoral neck fracture. Patient was admitted to our service for surgical intervention and care. After discussion consideration the patient elected to proceed with hemiarthroplasty of the left hip. The procedure was performed without competitions or sequelae. Patient is seen and evaluated at bedside today. Today's postoperative day #4. Her hemoglobin is stable 8.6. She denies shortness of breath or chest pain. She has had a bowel movement. Her pain is under fair control at this point. She seated at the bedside chair. She is not appear in acute distress. Dressing is clean dry and intact. Incision appears fine with no erythema or active drainage. Calf is soft and nontender. She is able to wiggle her toes without difficulty or pain. She has difficulty with motion at her ankle. She states this was present prior to her fall. She is able to slightly dorsiflex her great toe. Sensation is intact. Circulatory status is intact. The patient is orthopedically stable for transfer to rehab when she's been cleared medically. Pertinent Studies: Laboratory Tests 08/21/16 08/21/16 07:06 07:06 WBC 11.6 H RBC 3.71 L Hgb 8.6 L Hct 30.3 L MCV 81.6 MCH 23.2 L MCHC 28.4 L RDW 16.9 H Plt Count 470 H Neutrophils % 77 Lymphocytes % 11 Monocytes % 6 Eosinophils % 3 Basophils % 0 Neutrophils # 9.0 H Lymphocytes # 1.2 Monocytes # 0.7 Eosinophils # 0.4 Basophils # 0.0 Hypochromasia Marked Anisocytosis Slight PT 26.7 H INR 2.8 Patient Condition at Discharge: Fair Plan - Discharge Summary New Discharge Prescriptions: HYDROcodone/APAP 7.5-325MG [[place] 7.5-325] 1 - 2 tab PO Q4-6H PRN #60 tab PRN Reason: Pain Sennosides-Docusate Sodium [Senokot-S] 2 tab PO DAILY #30 tablet Warfarin [Coumadin] 2.5 mg PO DAILY #30 tab Discharge Medication List Aspirin EC [Ecotrin Low Dose] 81 mg PO DAILY 08/15/16 [History] Atenolol [Tenormin] 100 mg PO DAILY 08/15/16 [History] Atorvastatin Calcium [Lipitor] 40 mg PO HS 08/15/16 [History] Furosemide [Lasix] 40 mg PO DAILY 08/15/16 [History] Isosorbide Mononitrate ER [Imdur] 30 mg PO DAILY 08/15/16 [History] Loratadine [Claritin] 10 mg PO DAILY PRN 08/15/16 [History] Meclizine [Antivert] 25 mg PO TID PRN 08/15/16 [History] Mirabegron [Myrbetriq] 25 mg PO DAILY 08/15/16 [History] Nitroglycerin Sl Tabs [Nitrostat] 0.4 mg SUBLINGUAL Q5M PRN 08/15/16 [History] Potassium Chloride [Klor-Con 20] 20 meq PO DAILY 08/15/16 [History] Ranitidine HCl [Zantac] 150 mg PO BID 08/15/16 [History] Sertraline [Zoloft] 50 mg PO DAILY 08/15/16 [History] metFORMIN HCL [Glucophage] 500 mg PO BID 08/15/16 [History] HYDROcodone/APAP 7.5-325MG [[place] 7.5-325] 1 - 2 tab PO Q4-6H PRN #60 tab [Rx] Sennosides-Docusate Sodium [Senokot-S] 2 tab PO DAILY #30 tablet 08/20/16 [Rx] Warfarin [Coumadin] 2.5 mg PO DAILY #30 tab 08/20/16 [Rx] Follow up Appointment(s)/Referral(s): Lj Rodriguez, [NON-STAFF] - 1 Week Heithoff,Kodi, DO [Doctor of Osteopathic Medicine] - 09/04/16 9:20 am Iggy Caraballo MD [Primary Care Provider] - 1-2 days (Please make appt through [facility]) Ambulatory/Diagnostic Orders: Prothrombin Time INR [LAB.AMB] Location: Determined By Patient Activity/Diet/Wound Care/Special Instructions: Weightbearing as tolerated with a walker Coumadin 2.5 mg 1 by mouth daily for 4 weeks with weekly PT/INR Hold Coumadin today 08/21/2016 Follow Hip precautions Use Abductor pillow as instructed Keep incision clean and dry and keep dressing on for 2 weeks. Change daily. Call [facility] at [phone] with questions or concerns Discharge Disposition: TRANSFER TO SNF/ECF
[2016-08-21 11:37] LABS: Glucose,Whole Blood 143 mg/dL (75-99)
[2016-08-21] MEDS: MULTIVITAMINS, THERA 1 EACH TAB PO SCH (12:24)
[2016-08-21] MEDS: SENNOSIDES-DOCUSATE SODIUM 1 EACH TAB PO SCH (12:24)
--- NOTE | 2016-08-21 16:28 | CDI ---
In responding to this query, please exercise your independent professional judgment. The [facility] Coding Staff and Clinical Documentation Specialists appreciate your assistance in clarifying documentation, maintaining compliance with coding guidelines, accurately documenting patients condition and capturing severity of illness. The fact that a question is asked does not imply that any particular answer is desired or expected. Communication forms are a method of clarifying documentation and are not made part of the Legal Health Record. Thank you in advance for your clarification. Last Revision, May 2015 Muriel Flynn [address] [place] [address] Documentation Clarification Form Date: 08/21/2016 4:16:00 PM From: Divine Ibrahim Admit Date: 08/15/2016 3:05:00 PM Patient Name: Rosalva Larios Visit Number: [id number] Discharge Date: Dr. Luis Rg Malnutrition has been documented in your progress note on 08/19/16. History/Risk Factors: renal cell carcinoma Stage IV, CAD, Hypertension, atrial fibrillation Clinical Indicators: admitted with femoral neck fracture s/p fall. Appetite fair for greater than 6 months, Decreased intake patient has been going through chemotherapy for past 1 year. Labs: Albumin 2.6, Total Protein 6.3 Current BMI: 29.3 Insufficient energy intake: Yes Weight Loss: Yes, 35 lbs since starting chemotherapy Treatment: Dietary Consult: Yes Supplements: Glucerna Monitor Po/supplements Lab monitoring: In your professional opinion, can you please clarify if these findings signify one of the following conditions? Mild Protein Malnutrition Mild Protein-Calorie Malnutrition Moderate Protein Malnutrition Moderate Protein-Calorie Malnutrition Severe Protein Malnutrition Severe Protein-Calorie Malnutrition Malnutrition following GI surgery Malnutrition Other condition, please specify Unable to determine Please document in your progress notes and discharge summary in order to capture severity of illness and risk of mortality. Include clinical findings that support your diagnosis. FYI: Press F11 to launch patient chart. Place X here if this finding has no clinical significance, is not applicable or if you are not able to provide any additional documentation. MTDD
--- NOTE | 2016-08-22 14:58 | PN ---
INTERVAL HISTORY: Patient continues to be hemodynamically stable. No major events reported by nursing staff. Patient is currently sitting up in a chair. Alert and oriented x3. Daughter at the bedside, requesting that patient be discharged to a senior living facility. PHYSICAL EXAMINATION: VITAL SIGNS: Reviewed and stable. ( ) diminished bilaterally. ( ) ABDOMEN: Soft. ( ) bowel sounds in all four quadrants. LOWER EXTREMITIES: Stable edema. PSYCH: Alert and oriented x3. ( ) ASSESSMENT AND PLAN: 1. Femoral neck fracture, status post open reduction internal fixation. Continue PT and OT, DVT prophylaxis. ( ) per primary team. 2. Renal cell carcinoma, stage IV. To continue ( ) recommendation. 3. Severe protein-calorie malnutrition. Encourage ( ) 4. Anasarca and fluid overload. ( ) as-needed basis. 5. Anemia. Will continue periodic monitoring. 6. Debility and weakness. ( ) discharging to senior living facility. ( ) prior to discharge.
== END 2016-08-21 16:57 | DRG 469 ==
LOC: EC 12:33 → 3SUR 15:05
PROVIDERS: ADMIT Orthopaedic Surgery; ATTEND Orthopaedic Surgery
PROC: 0JQ00ZZ Repair Scalp Subcutaneous Tissue and Fascia, Open Approach (ICD-10-PCS; 2016-08-15)
PROC: 0SRS01A Replacement of Left Hip Joint, Femoral Surface with Metal Synthetic Substitute, Uncemented, Open Approach (ICD-10-PCS; principal; 2016-08-17 10:45)
DX: S72.012A Unspecified intracapsular fracture of left femur, initial encounter for closed fracture (principal); E43 Unspecified severe protein-calorie malnutrition; C77.9 Secondary and unspecified malignant neoplasm of lymph node, unspecified; C78.00 Secondary malignant neoplasm of unspecified lung; C64.9 Malignant neoplasm of unspecified kidney, except renal pelvis; E87.70 Fluid overload, unspecified; D64.9 Anemia, unspecified; E11.9 Type 2 diabetes mellitus without complications; I48.0 Paroxysmal atrial fibrillation; I10 Essential (primary) hypertension; E78.5 Hyperlipidemia, unspecified; I25.10 Atherosclerotic heart disease of native coronary artery without angina pectoris; K21.9 Gastro-esophageal reflux disease without esophagitis; S01.01XA Laceration without foreign body of scalp, initial encounter; W19.XXXA Unspecified fall, initial encounter; Y92.009 Unspecified place in unspecified non-institutional (private) residence as the place of occurrence of the external cause; Y92.481 Parking lot as the place of occurrence of the external cause; Z82.49 Family history of ischemic heart disease and other diseases of the circulatory system; Z92.21 Personal history of antineoplastic chemotherapy; Z95.5 Presence of coronary angioplasty implant and graft; Z79.82 Long term (current) use of aspirin; Z79.899 Other long term (current) drug therapy; Z88.5 Allergy status to narcotic agent; Z88.1 Allergy status to other antibiotic agents
CPT/HCPCS: 12013; 36415; 70450; 71010; 72125; 73501; 73502; 80048; 80053; 82550; 82553; 83036; 83735; 84484; 85025; 85610; 85730; 86850; 86900; 86901; 88305; 88311; 88341; 88342; 90471; 90715; 93005; 93306; 94760; 96361; 96365; 96375; 96376; 99285